=== PATIENT | female | born 1985 | race African-American/Black ===

== ENCOUNTER 2017-10-24 14:56 | Inpatient (IN) | payer OTHER ==
[~2017-10-24] VITALS: Ht 180.3 cm; Wt 173.8 kg
[~2017-10-24 14:56] MED LIST: ALBU1AER9 INH; AMPH30CA3 PO; BUPRTAB PO; CLON1TAB3 PO; DOCU-94 PO; FLNIN NAE; GABA800T PO; HYDR50CA2 PO; IPRA1AER2 INH; RIVA1TAB4 PO; SERT-234 PO; XRL15 PO
[2017-10-24] MEDS ORDERED: SODIUM CHLORIDE 0.9% 1000ML 1,000 ML IV STA (15:16)
[2017-10-24] MEDS ORDERED: FENTANYL CITRATE INJ 50 MCG/1 ML 2 ML VIAL IV STA ×2 (15:16→17:03)
[2017-10-24] MEDS ORDERED: OPTIRAY 320 IV PRN (15:30)
[2017-10-24] MEDS ORDERED: LACTULOSE SYRUP 20 GM/30 ML UDC PO STA (15:33)
--- NOTE | 2017-10-24 15:35 | DIAGNOSTIC IMAGING REPORT ---
CHEST ONE VIEW PORTABLE CLINICAL HISTORY: Abdominal pain. COMPARISON STUDY: Chest CT December 27, 2015. FINDINGS: Lung volumes are mildly diminished. There is no pneumothorax or pleural effusion. Bibasilar linear opacities are noted. Cardiomediastinal silhouette is stable. There is no convincing evidence for pulmonary edema. There is no pneumothorax or pleural effusion. IMPRESSION: Linear bibasilar opacities which favor atelectasis. Electronically signed by: Stan De Leon M.D. 10/24/2017 3:34 PM Dictated Date/Time: 10/24/2017 3:33 PM
--- NOTE | 2017-10-24 15:38 | EMERGENCY ROOM VISIT NOTE ---
History Report prepared by Aleksey: Luis Snyder Under the Supervision of: Dr. Stefano Angel M.D. First contact with patient: 15:07 Chief Complaint: PAIN (GENERALIZED) Stated Complaint: PAIN RT SIDE, BACK,RIBS, THROUGH SHOULDER, History of Present Illness The patient is a 32 year old female who presents to the Emergency Room with complaints of worsening right sided upper back pain that began yesterday evening. She rates her pain as a 10/10 in severity. She reports that her pain is worsened with movement. The patient states that she went to a concert yesterday, but denies any movements that would cause her pain. She reports that she was sitting yesterday evening and stood up due to the fact that she was uncomfortable. The patient states that the more she walked, the more the pain worsened. The patient states that the pain radiates to her right side into her right shoulder, neck, and arm. She reports that the pain started off feeling like a "hot knife. The patient states that the pain has been causing her to become short of breath. She denies nausea, vomiting, cough, congestion, and diarrhea. She reports a history of Chron's disease, blood clots, and PEs. The patient states that she takes Xarelto for her history of blood clots. She reports that she has not had a pulmonary embolism since December 2015 when before she started Xarelto. The patient states that her symptoms during her PE are not similar to her current symptoms. She states that her father had similar symptoms to her current symptoms when he had a PE. The patient denies a history of gallstones, renal calculi, sciatica, and similar symptoms. She states that her last menstrual period was in April and reports that she takes Provera. Source of History: patient Onset: yesterday evening Position: back (upper, right) Symptom Intensity: 10/10 Quality: other ("hot knife" and spasms) Timing: worsening Modifying Factors (Worsening): movement Associated Symptoms: + neck pain, + SOB, No cough, No nausea, No vomiting, No diarrhea Review of Systems See HPI for pertinent positives and negatives. A total of ten systems were reviewed and were otherwise negative. Past Medical & Surgical Medical Problems: (1) ADHD (attention deficit hyperactivity disorder) (2) Gastritis (3) Left leg DVT (4) PCOS (polycystic ovarian syndrome) (5) PE (pulmonary embolism) Surgical Problems: (1) History of tonsillectomy and adenoidectomy Family History FHx: blood clots (father) FHx: diabetes (paternal family) FHx: hypertension (father) Social History Smoking Status: Current Every Day Smoker Alcohol Use: occasionally Drug Use: none Marital Status: single Housing Status: lives with roommate Current/Historical Medications Scheduled Bupropion Hcl (Wellbutrin Xl), 150 MG PO DAILY Fluticasone Propionate (Fluticasone Propionate), 2 SPRAYS GABRIEL DAILY Ipratropium-Albuterol (Combivent Respimat), 2 PUFFS INH BID Rivaroxaban (Xarelto), 20 MG PO DAILY Scheduled PRN Albuterol Sulfate (Proair Hfa), 2 PUFFS INH QID PRN for SOB/Wheezing Allergies Coded Allergies: No Known Allergies (Verified , 10/24/17) Physical Exam Vital Signs Date Time Temp Pulse Resp B/P (MAP) Pulse Ox O2 Delivery O2 Flow Rate FiO2 10/24/17 18:02 69 121/73 95 10/24/17 17:31 62 122/81 95 10/24/17 17:02 69 126/76 98 10/24/17 16:55 62 10/24/17 16:50 73 25 115/65 98 10/24/17 16:49 67 20 115/65 97 Room Air 10/24/17 16:09 72 18 122/67 96 Room Air 10/24/17 15:43 72 21 133/90 97 Room Air 10/24/17 15:40 Room Air 10/24/17 15:02 36.6 79 24 96 Room Air Physical Exam GENERAL: Awake, alert, uncomfortable appearing, in no distress HENT: Normocephalic, atraumatic. Oropharynx unremarkable. EYES: Normal conjunctiva. Sclera non-icteric. NECK: Supple. No nuchal rigidity. FROM. No JVD. RESPIRATORY: Clear to auscultation. CARDIAC: Regular rate, normal rhythm. Extremities warm and well perfused. Pulses equal. ABDOMEN: Soft, non-distended. No tenderness to palpation. No rebound or guarding. No masses. Negative Mendez's. No peritoneal signs. RECTAL: Deferred. MUSCULOSKELETAL: Tenderness along trapezius muscle extending into anterior lateral chest wall. The back is symmetrical on inspection without obvious abnormality. There is no CVA tenderness to palpation. No joint edema. LOWER EXTREMITIES: Calves are equal size bilaterally and non-tender. No edema. No discoloration. NEURO: Normal sensorium. No sensory or motor deficits noted. SKIN: No rash or jaundice noted. Medical Decision & Procedures ER Provider Diagnostic Interpretation: Radiology results as stated below per my review and radiologist interpretation: CHEST ONE VIEW PORTABLE CLINICAL HISTORY: Abdominal pain. COMPARISON STUDY: Chest CT December 27, 2015. FINDINGS: Lung volumes are mildly diminished. There is no pneumothorax or pleural effusion. Bibasilar linear opacities are noted. Cardiomediastinal silhouette is stable. There is no convincing evidence for pulmonary edema. There is no pneumothorax or pleural effusion. IMPRESSION: Linear bibasilar opacities which favor atelectasis. Electronically signed by: Stan De Leon M.D. 10/24/2017 3:34 PM Dictated Date/Time: 10/24/2017 3:[address] ANGIOGRAPHY OF THE CHEST, PULMONARY EMBOLUS PROTOCOL CLINICAL HISTORY: Chest pain and shortness of breath. COMPARISON STUDY: Chest CT December 27, 2015 and chest radiograph performed earlier today. TECHNIQUE: Following IV administration of 116 mL of Optiray-320, helical axial images of the chest were obtained utilizing the pulmonary embolus protocol. Maximal intensity projections and sagittal and coronal reformats were viewed on an independent 3D workstation. IV contrast was administered without complication. A dose lowering technique was utilized adhering to the principles of ALARA. CT DOSE: 2940.20 mGy.cm FINDINGS: There is no central pulmonary embolus. There are multiple segmental pulmonary emboli within the right lower lobe. The embolus burden is diminished when compared to exam of December 27, 2015 however several right lower lobe probably emboli were not evident on that exam. Multifocal subpleural groundglass opacities within the right lower lobe favor pulmonary infarcts which measure up to 4.3 cm. Additional groundglass and linear opacities suggest atelectasis. The heart is mildly enlarged. There is no pericardial effusion. There is no evidence of thoracic aortic dissection. Bony thorax is unremarkable. Abdomen and pelvis will be reported separately. IMPRESSION: 1. Multiple segmental pulmonary emboli within the right lower lobe. Overall, embolus burden is diminished when compared to chest CT of December 27, 2015. However, several of these emboli were not shown on previous CT and several right lower lobe subpleural opacities suggest pulmonary infarcts. Therefore, at least several, if not all, of these right lower lobe pulmonary emboli are likely acute. Discussed with Dr. Angel at time of dictation. 2. Mild cardiomegaly. Electronically signed by: Stan De Leon M.D. 10/24/2017 5:01 PM Dictated Date/Time: 10/24/2017 4:[address] OF THE ABDOMEN AND PELVIS WITH CONTRAST CLINICAL HISTORY: Right upper quadrant abdominal pain. Chest pain and shortness of breath. COMPARISON STUDY: CT of the abdomen and pelvis October 02, 2013. TECHNIQUE: Following IV administration of 116 mL of Optiray-320, axial images of the abdomen and pelvis were obtained from the lung bases to the proximal femurs. Images were reviewed in the axial, sagittal, and coronal planes. IV contrast was administered without complication. A dose lowering technique was utilized adhering to the principles of ALARA. FINDINGS: Visualized portions of the lower chest demonstrate multiple segmental right lower lobe pulmonary emboli which are better depicted on the chest CT. A few subpleural groundglass opacities within the right lower lobe favor pulmonary infarcts which measure up to 4.7 cm. These pulmonary emboli are age indeterminate given previous pulmonary emboli which were shown on study of December 27, 2015. The liver, ,spleen, adrenal glands, kidneys and pancreas are unremarkable. There are several splenule. There is no biliary or pancreatic ductal dilatation. There is no hemoperitoneum or pneumoperitoneum. The ovaries are not enlarged. There is no evidence for a bowel obstruction. The appendix is normal. No ascites or lymphadenopathy is present. There are no suspicious skeletal lesions. IMPRESSION: 1. No acute process within the abdomen or pelvis. 2. Multiple segmental pulmonary emboli within the right lower lobe. Although age indeterminate given known previous pulmonary emboli, acute emboli are favored given the CT appearance and associated suspected right lower lobe pulmonary infarcts. Discussed with Dr. Angel at time of dictation. Electronically signed by: Stan De Leon M.D. 10/24/2017 5:14 PM Dictated Date/Time: 10/24/2017 5:08 PM BILATERAL LOWER EXTREMITY VENOUS DOPPLER CLINICAL HISTORY: +PE on AC, r/o dvt COMPARISON STUDY: Right lower extremity venous Doppler December 27, 2015 and left lower extremity venous Doppler October 28, 2013. TECHNIQUE: Sonography of the deep venous system of the bilateral lower extremities was performed. Compression and augmentation were evaluated. FINDINGS: The common femoral, superficial femoral and popliteal veins were compressible. Augmentation was normal. Flow was shown within the deep calf vessels although the calf vessels were suboptimally assessed due to suboptimal penetration. IMPRESSION: Suboptimal evaluation of the calf vessels but no evidence of deep venous thrombus within the bilateral lower extremities. Electronically signed by: Stan De Leon M.D. 10/24/2017 7:25 PM Dictated Date/Time: 10/24/2017 7:24 PM Laboratory Results 10/24/17 15:40 Red Blood Count 4.75, Mean Corpuscular Volume 79.6, Mean Corpuscular Hemoglobin 25.3, Mean Corpuscular Hemoglobin Concent 31.7, Mean Platelet Volume 9.2, Neutrophils (%) (Auto) 55.8, Lymphocytes (%) (Auto) 33.3, Monocytes (%) (Auto) 8.7, Eosinophils (%) (Auto) 1.6, Basophils (%) (Auto) 0.3, Neutrophils # (Auto) 3.92, Lymphocytes # (Auto) 2.34, Monocytes # (Auto) 0.61, Eosinophils # (Auto) 0.11, Basophils # (Auto) 0.02 10/24/17 15:40 Test 10/24/17 15:40 10/24/17 16:15 White Blood Count 7.02 K/uL (4.8-10.8) Red Blood Count 4.75 M/uL (4.2-5.4) Hemoglobin 12.0 g/dL (12.0-16.0) Hematocrit 37.8 % (37-47) Mean Corpuscular Volume 79.6 fL (80-100) Mean Corpuscular Hemoglobin 25.3 pg (25-34) Mean Corpuscular Hemoglobin Concent 31.7 g/dl (32-36) Platelet Count 277 K/uL (130-400) Mean Platelet Volume 9.2 fL (7.4-10.4) Neutrophils (%) (Auto) 55.8 % Lymphocytes (%) (Auto) 33.3 % Monocytes (%) (Auto) 8.7 % Eosinophils (%) (Auto) 1.6 % Basophils (%) (Auto) 0.3 % Neutrophils # (Auto) 3.92 K/uL (1.4-6.5) Lymphocytes # (Auto) 2.34 K/uL (1.2-3.4) Monocytes # (Auto) 0.61 K/uL (0.11-0.59) Eosinophils # (Auto) 0.11 K/uL (0-0.5) Basophils # (Auto) 0.02 K/uL (0-0.2) RDW Standard Deviation 46.1 fL (36.4-46.3) RDW Coefficient of Variation 15.9 % (11.5-14.5) Immature Granulocyte % (Auto) 0.3 % Immature Granulocyte # (Auto) 0.02 K/uL (0.00-0.02) Anion Gap 6.0 mmol/L (3-11) Est Creatinine Clear Calc Drug Dose 144.6 ml/min Estimated GFR () 93.6 Estimated GFR (Non- 80.8 BUN/Creatinine Ratio 9.7 (10-20) Calcium Level 8.9 mg/dl (8.5-10.1) Total Bilirubin 0.3 mg/dl (0.2-1) Direct Bilirubin < 0.1 mg/dl (0-0.2) Aspartate Amino Transf (AST/SGOT) 9 U/L (15-37) Alanine Aminotransferase (ALT/SGPT) 20 U/L (12-78) Alkaline Phosphatase 66 U/L (45-117) Troponin I < 0.015 ng/ml (0-0.045) Total Protein 7.6 gm/dl (6.4-8.2) Albumin 3.3 gm/dl (3.4-5.0) Lipase 84 U/L (73-393) Urine Color YELLOW Urine Appearance TURBID (CLEAR) Urine pH 5.0 (4.5-7.5) Urine Specific Brethren 1.034 (1.000-1.030) Urine Protein NEG (NEG) Urine Glucose (UA) NEG (NEG) Urine Ketones NEG (NEG) Urine Occult Blood NEG (NEG) Urine Nitrite NEG (NEG) Urine Bilirubin NEG (NEG) Urine Urobilinogen NEG (NEG) Urine Leukocyte Esterase NEG (NEG) Urine WBC (Auto) 10-30 /hpf (0-5) Urine RBC (Auto) 5-10 /hpf (0-4) Urine Hyaline Casts (Auto) 0 /lpf (0-5) Urine Epithelial Cells (Auto) >30 /lpf (0-5) Urine Bacteria (Auto) 2+ (NEG) Urine Renal Epithelial Cells /lpf (0-5) Urine Pathogenic Casts /lpf (0) Urine Test NEG (NEG) Date/Time Source Procedure Growth Status 10/24/17 16:15 Urine , Clean Catch Urine Culture - Final MORE THAN THREE TYPES OF ORGANISMS AK... Complete Laboratory results reviewed by me Medications Administered Medications (Trade) Dose Ordered Sig/Becca Route Start Time Stop Time Status Last Admin Dose Admin Sodium Chloride 1,000 ml @ 999 mls/hr Q1H1M STAT IV 10/24/17 15:16 10/24/17 16:16 DC 10/24/17 15:16 999 MLS/HR Fentanyl Citrate (Fentanyl Inj) 50 mcg NOW STAT IV 10/24/17 15:16 10/24/17 15:19 DC 10/24/17 16:08 50 MCG Acetaminophen 100 ml @ 400 mls/hr NOW STAT IV 10/24/17 16:55 10/24/17 17:09 DC 10/24/17 17:10 400 MLS/HR Fentanyl Citrate (Fentanyl Inj) 50 mcg NOW STAT IV 10/24/17 17:03 10/24/17 17:04 DC 10/24/17 17:10 50 MCG ECG Indication: back/shoulder pain Rate (beats per minute): 71 Rhythm: normal sinus Findings: no acute ischemic change, other (Normal axis) ED Course 151: The patient was evaluated in room C05. A complete history and physical exam was performed. 1724: I reevaluated the patient and she reports that she did not take her Xarelto for a week recently. 1831: I discussed the patients case with Dr. Encinas, [facility] Hospitalist. He understands the patients condition and agrees to accept the patient. He agrees to give the patient Heparin given the patients history of pulmonary embolism. The patient will be further evaluated. Medical Decision I reviewed the patient's past medical history, medications, and the nursing notes as described above. The patient's presentation and history were concerning for pneumonia, bronchitis , PE, biliary etiology, gastroenteritis, colitis, uretal stone, UTI, and pyelonephritis. 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 Of note, upon further questioning patient reports that she did not take her Xaralto for 1 week because she went home for the holidays and forgot it. On arrival the patient is uncomfortable but in NAD, AFVSS. EKG unremarkable. Trop negative. CT abd/pel unremarkable. CTA of chest demonstrates acute pulmonary infarcts, which likely explain her pain particularly in the setting of being of her Xarelto. Case d/w Dr. Encinas [facility], who will admit the patient for further management. Of note, patient did not take her Xarelto today. Will tx with heparin for now given risk of hemorrhage with pulmonary infarcts. Medication Reconcilliation Current Medication List: was personally reviewed by me Blood Pressure Screening Patient's blood pressure: Normal blood pressure Consults Time Called: 1830 Consulting Phys[facility] Returned Call: 1830 I discussed the patients [facility] He understands the patients condition and agrees to accept the patient. He agrees to give the patient Heparin given the patients history of pulmonary embolism. The patient will be further evaluated. Impression Primary Impression: Pulmonary infarct Additional Impression: Pulmonary embolism Critical Care I have personally spent greater than 35 minutes of critical care time in the direct management of this patient. This includes bedside care, interpretation of diagnostic studies, and testing, discussion with consultants, patient, and family members, and other required patient management activities. This 35 minutes is in excess of all separately billable procedures. Scribe Attestation The scribe's documentation has been prepared under my direction and personally reviewed by me in its entirety. I confirm that the note above accurately reflects all work, treatment, procedures, and medical decision making performed by me. Departure Information Dispostion Being Evaluated By Hospitalist Referrals No Doctor, Assigned (PCP) Patient Instructions My [facility] Problem Qualifiers
[2017-10-24 15:53] LABS: BASO % 0.3 %; BASO ABS # 0.02 K/uL (0-0.2); EOS % 1.6 %; EOS ABS # 0.11 K/uL (0-0.5); HEMATOCRIT 37.8 % (37-47); IG# 0.02 K/uL (0.00-0.02); LYMPH % 33.3 %; LYMPH ABS # 2.34 K/uL (1.2-3.4); MEAN CELL VOLUME 79.6 fL (80-100); MEAN CORPUSCULAR HEMOGLOBIN 25.3 pg (25-34); MEAN CORPUSCULAR HGB CONC 31.7 g/dl (32-36); MEAN PLATELET VOLUME 9.2 fL (7.4-10.4); MONO % 8.7 %; MONO ABS # 0.61 K/uL (0.11-0.59); NEUT % 55.8 %; NEUT ABS # 3.92 K/uL (1.4-6.5); PLATELET COUNT 277 K/uL (130-400); RED CELL DISTRIBUTION WIDTH CV 15.9 % (11.5-14.5); RED CELL DISTRIBUTION WIDTH SD 46.1 fL (36.4-46.3); WHITE BLOOD COUNT 7.02 K/uL (4.8-10.8)
[2017-10-24 16:11] LABS: ALBUMIN 3.3 gm/dl (3.4-5.0); ALT/SGPT 20 U/L (12-78); AST/SGOT 9 U/L (15-37); BLOOD UREA NITROGEN 9 mg/dl (7-18); CALCIUM 8.9 mg/dl (8.5-10.1); CARBON DIOXIDE 25 mmol/L (21-32); CREATININE 0.93 mg/dl (0.60-1.20); GLUCOSE 91 mg/dl (70-99); LIPASE 84 U/L (73-393); POTASSIUM 3.7 mmol/L (3.5-5.1); SODIUM 137 mmol/L (136-145)
[2017-10-24 16:17] LABS: ALKALINE PHOSPHATASE 66 U/L (45-117); TOTAL PROTEIN 7.6 gm/dl (6.4-8.2)
[2017-10-24] MEDS ORDERED: ACETAMINOPHEN IV 100 ML IV STA (16:55)
--- NOTE | 2017-10-24 17:03 | DIAGNOSTIC IMAGING REPORT ---
CT ANGIOGRAPHY OF THE CHEST, PULMONARY EMBOLUS PROTOCOL CLINICAL HISTORY: Chest pain and shortness of breath. COMPARISON STUDY: Chest CT December 27, 2015 and chest radiograph performed earlier today. TECHNIQUE: Following IV administration of 116 mL of Optiray-320, helical axial images of the chest were obtained utilizing the pulmonary embolus protocol. Maximal intensity projections and sagittal and coronal reformats were viewed on an independent 3D workstation. IV contrast was administered without complication. A dose lowering technique was utilized adhering to the principles of ALARA. CT DOSE: 2940.20 mGy.cm FINDINGS: There is no central pulmonary embolus. There are multiple segmental pulmonary emboli within the right lower lobe. The embolus burden is diminished when compared to exam of December 27, 2015 however several right lower lobe probably emboli were not evident on that exam. Multifocal subpleural groundglass opacities within the right lower lobe favor pulmonary infarcts which measure up to 4.3 cm. Additional groundglass and linear opacities suggest atelectasis. The heart is mildly enlarged. There is no pericardial effusion. There is no evidence of thoracic aortic dissection. Bony thorax is unremarkable. Abdomen and pelvis will be reported separately. IMPRESSION: 1. Multiple segmental pulmonary emboli within the right lower lobe. Overall, embolus burden is diminished when compared to chest CT of December 27, 2015. However, several of these emboli were not shown on previous CT and several right lower lobe subpleural opacities suggest pulmonary infarcts. Therefore, at least several, if not all, of these right lower lobe pulmonary emboli are likely acute. Discussed with Dr. Angel at time of dictation. 2. Mild cardiomegaly. Electronically signed by: Stan De Leon M.D. 10/24/2017 5:01 PM Dictated Date/Time: 10/24/2017 4:49 PM
--- NOTE | 2017-10-24 17:15 | DIAGNOSTIC IMAGING REPORT ---
CT OF THE ABDOMEN AND PELVIS WITH CONTRAST CLINICAL HISTORY: Right upper quadrant abdominal pain. Chest pain and shortness of breath. COMPARISON STUDY: CT of the abdomen and pelvis October 02, 2013. TECHNIQUE: Following IV administration of 116 mL of Optiray-320, axial images of the abdomen and pelvis were obtained from the lung bases to the proximal femurs. Images were reviewed in the axial, sagittal, and coronal planes. IV contrast was administered without complication. A dose lowering technique was utilized adhering to the principles of ALARA. FINDINGS: Visualized portions of the lower chest demonstrate multiple segmental right lower lobe pulmonary emboli which are better depicted on the chest CT. A few subpleural groundglass opacities within the right lower lobe favor pulmonary infarcts which measure up to 4.7 cm. These pulmonary emboli are age indeterminate given previous pulmonary emboli which were shown on study of December 27, 2015. The liver, ,spleen, adrenal glands, kidneys and pancreas are unremarkable. There are several splenule. There is no biliary or pancreatic ductal dilatation. There is no hemoperitoneum or pneumoperitoneum. The ovaries are not enlarged. There is no evidence for a bowel obstruction. The appendix is normal. No ascites or lymphadenopathy is present. There are no suspicious skeletal lesions. IMPRESSION: 1. No acute process within the abdomen or pelvis. 2. Multiple segmental pulmonary emboli within the right lower lobe. Although age indeterminate given known previous pulmonary emboli, acute emboli are favored given the CT appearance and associated suspected right lower lobe pulmonary infarcts. Discussed with Dr. Angel at time of dictation. Electronically signed by: Stan De Leon M.D. 10/24/2017 5:14 PM Dictated Date/Time: 10/24/2017 5:08 PM
[2017-10-24] MEDS ORDERED: HYDR25CA PO (19:20)
[2017-10-24] MEDS ORDERED: FLNIN NAE (19:20)
[2017-10-24] MEDS ORDERED: ERGO500037 PO (19:20)
--- NOTE | 2017-10-24 19:26 | DIAGNOSTIC IMAGING REPORT ---
BILATERAL LOWER EXTREMITY VENOUS DOPPLER CLINICAL HISTORY: +PE on AC, r/o dvt COMPARISON STUDY: Right lower extremity venous Doppler December 27, 2015 and left lower extremity venous Doppler October 28, 2013. TECHNIQUE: Sonography of the deep venous system of the bilateral lower extremities was performed. Compression and augmentation were evaluated. FINDINGS: The common femoral, superficial femoral and popliteal veins were compressible. Augmentation was normal. Flow was shown within the deep calf vessels although the calf vessels were suboptimally assessed due to suboptimal penetration. IMPRESSION: Suboptimal evaluation of the calf vessels but no evidence of deep venous thrombus within the bilateral lower extremities. Electronically signed by: Stan De Leon M.D. 10/24/2017 7:25 PM Dictated Date/Time: 10/24/2017 7:24 PM
[2017-10-24] MEDS ORDERED: IV FLUIDS COMPLETED PRN (19:30)
--- NOTE | 2017-10-24 19:38 | History and Physical ---
History & Physical Date & Time of Service: Oct 24, 2017 at 19:24 Chief Complaint: Pain Rt Side, Back,Ribs, Through Shoulder, Primary Care Physician: Petty Blanton D.O. History of Present Illness Source: patient, clinic records, hospital records 32 year old female with PMH of PE on Xarelto, tobacco use, MTHFR mutation, anxiety presents to the Emergency Room with complaints right sided rib pain associated with SOB. Pt said that yesterday she developed pain in her right side of her back below the her shoulder blade, radiating to her right side of her ribs area and travelling under her right breast and her neck. she said that the pain also traveled to her right UE and feels like she had a nerve impingement. Pt said that pain was 10/10 in severity and cramping like. She said that today the pain get worst and associated with worsening SOB. She said that she was having SOB with minimal exertion. Pt said that she went to visit her family and forgot to bring her xarelto. she said that she spent 8 days without taking her xarelto. she said that she starting to take it again when she got back after the new year , and she said that she missed a few doses after the new year to now. Pt said that this is her 3rd PE. CTA done in the ER showed PE. Denies any chest pain, palpitation, dizziness, fever. Past Medical/Surgical History Medical Problems: (1) ADHD (attention deficit hyperactivity disorder) Status: Chronic (2) Gastritis Status: Chronic (3) Left leg DVT Status: Resolved (4) PCOS (polycystic ovarian syndrome) Status: Chronic (5) PE (pulmonary embolism) Status: Resolved Surgical Problems: (1) History of tonsillectomy and adenoidectomy Status: Resolved Family History FHx: blood clots (father) FHx: diabetes (paternal family) FHx: hypertension (father) Social History Smoking Status: Current Every Day Smoker Drug Use: none Marital Status: single Housing status: lives with friends Immunizations History of Influenza Vaccine: Yes Influenza Vaccine Date: Jul 18, 2013 History of Tetanus Vaccine?: Yes Tetanus Immunization Date: Jul 18, 2013 History of Pneumococcal: No History of Hepatitis B Vaccine: Yes Allergies Coded Allergies: No Known Allergies (Verified , 10/24/17) Home Medications Scheduled Bupropion Hcl (Wellbutrin Xl), 150 MG PO DAILY Ergocalciferol (Vitamin D 91476 Unit), 1 CAP PO WK Fluticasone Propionate (Fluticasone Propionate), 2 SPRAYS GABRIEL DAILY Hydroxyzine Pamoate (Vistaril), 2 CAP PO HS Ipratropium-Albuterol (Combivent Respimat), 2 PUFFS INH BID Rivaroxaban (Xarelto), 20 MG PO DAILY Scheduled PRN Albuterol Sulfate (Proair Hfa), 2 PUFFS INH QID PRN for SOB/Wheezing Review of Systems Constitutional: No fever, No chills Eyes: No worsening of vision, No redness ENT: No nasal symptoms, No sore throat Respiratory: + shortness of breath, + dyspnea on exertion, No cough, No sputum Cardiovascular: No edema, No claudication, No palpitations Abdomen: No pain, No nausea, No vomiting Genitourinary - Female: No dysuria, No urinary frequency Neurologic: No memory loss, No paralysis Psychiatric: + anxiety Endocrine: No fatigue Hematologic / Lymphatic: No night sweats Integumentary: No rash, No itch Physical Exam Vital Signs Date Time Temp Pulse Resp B/P (MAP) Pulse Ox O2 Delivery O2 Flow Rate FiO2 10/24/17 18:02 69 121/73 95 10/24/17 17:31 62 122/81 95 10/24/17 17:02 69 126/76 98 10/24/17 16:55 62 10/24/17 16:50 73 25 115/65 98 10/24/17 16:49 67 20 115/65 97 Room Air 10/24/17 16:09 72 18 122/67 96 Room Air 10/24/17 15:43 72 21 133/90 97 Room Air 10/24/17 15:40 Room Air 10/24/17 15:02 36.6 79 24 96 Room Air General Appearance: + mild distress, + obese Head: normocephalic, atraumatic Eyes: PERRL, EOMI ENT: hearing grossly normal Neck: no JVD Respiratory/Chest: lungs clear, no accessory muscle use Cardiovascular: no JVD, no murmur Abdomen/GI: normal bowel sounds, non tender, soft Back: + pertinent finding (right sided back tenderness) Extremities/Musculoskelatal: no calf tenderness, no pedal edema 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, no motor/sensory deficits, alert, oriented x 3 Skin: warm/dry, no rash Diagnostics Laboratory Results Results Past 24 Hours Test 10/24/17 15:40 10/24/17 16:15 Range/Units White Blood Count 7.02 4.8-10.8 K/uL Red Blood Count 4.75 4.2-5.4 M/uL Hemoglobin 12.0 12.0-16.0 g/dL Hematocrit 37.8 37-47 % Mean Corpuscular Volume 79.6 80-100 fL Mean Corpuscular Hemoglobin 25.3 25-34 pg Mean Corpuscular Hemoglobin Concent 31.7 32-36 g/dl Platelet Count 277 130-400 K/uL Mean Platelet Volume 9.2 7.4-10.4 fL Neutrophils (%) (Auto) 55.8 % Lymphocytes (%) (Auto) 33.3 % Monocytes (%) (Auto) 8.7 % Eosinophils (%) (Auto) 1.6 % Basophils (%) (Auto) 0.3 % Neutrophils # (Auto) 3.92 1.4-6.5 K/uL Lymphocytes # (Auto) 2.34 1.2-3.4 K/uL Monocytes # (Auto) 0.61 0.11-0.59 K/uL Eosinophils # (Auto) 0.11 0-0.5 K/uL Basophils # (Auto) 0.02 0-0.2 K/uL RDW Standard Deviation 46.1 36.4-46.3 fL RDW Coefficient of Variation 15.9 11.5-14.5 % Immature Granulocyte % (Auto) 0.3 % Immature Granulocyte # (Auto) 0.02 0.00-0.02 K/uL Sodium Level 137 136-145 mmol/L Potassium Level 3.7 3.5-5.1 mmol/L Chloride Level 106 98-107 mmol/L Carbon Dioxide Level 25 21-32 mmol/L Anion Gap 6.0 3-11 mmol/L Blood Urea Nitrogen 9 7-18 mg/dl Creatinine 0.93 0.60-1.20 mg/dl Est Creatinine Clear Calc Drug Dose 144.6 ml/min Estimated GFR () 93.6 Estimated GFR (Non- 80.8 BUN/Creatinine Ratio 9.7 10-20 Random Glucose 91 70-99 mg/dl Calcium Level 8.9 8.5-10.1 mg/dl Total Bilirubin 0.3 0.2-1 mg/dl Direct Bilirubin < 0.1 0-0.2 mg/dl Aspartate Amino Transf (AST/SGOT) 9 15-37 U/L Alanine Aminotransferase (ALT/SGPT) 20 12-78 U/L Alkaline Phosphatase 66 45-117 U/L Troponin I < 0.015 0-0.045 ng/ml Total Protein 7.6 6.4-8.2 gm/dl Albumin 3.3 3.4-5.0 gm/dl Lipase 84 73-393 U/L Urine Color YELLOW Urine Appearance TURBID CLEAR Urine pH 5.0 4.5-7.5 Urine Specific [place] 1.034 1.000-1.030 Urine Protein NEG NEG Urine Glucose (UA) NEG NEG Urine Ketones NEG NEG Urine Occult Blood NEG NEG Urine Nitrite NEG NEG Urine Bilirubin NEG NEG Urine Urobilinogen NEG NEG Urine Leukocyte Esterase NEG NEG Urine WBC (Auto) 10-30 0-5 /hpf Urine RBC (Auto) 5-10 0-4 /hpf Urine Hyaline Casts (Auto) 0 0-5 /lpf Urine Epithelial Cells (Auto) >30 0-5 /lpf Urine Bacteria (Auto) 2+ NEG Urine Renal Epithelial Cells 0-5 /lpf Urine Pathogenic Casts 0 /lpf Urine Test NEG NEG Microbiology Results 10/24/17 Urine Culture, Received Pending Diagnostic Radiology CHEST ONE VIEW PORTABLE CLINICAL HISTORY: Abdominal pain. COMPARISON STUDY: Chest CT December 27, 2015. FINDINGS: Lung volumes are mildly diminished. There is no pneumothorax or pleural effusion. Bibasilar linear opacities are noted. Cardiomediastinal silhouette is stable. There is no convincing evidence for pulmonary edema. There is no pneumothorax or pleural effusion. IMPRESSION: Linear bibasilar opacities which favor atelectasis. Electronically signed by: Stan De Leon M.D. 10/24/2017 3:34 PM Dictated Date/Time: 10/24/2017 3:[address] ANGIOGRAPHY OF THE CHEST, PULMONARY EMBOLUS PROTOCOL CLINICAL HISTORY: Chest pain and shortness of breath. COMPARISON STUDY: Chest CT December 27, 2015 and chest radiograph performed earlier today. TECHNIQUE: Following IV administration of 116 mL of Optiray-320, helical axial images of the chest were obtained utilizing the pulmonary embolus protocol. Maximal intensity projections and sagittal and coronal reformats were viewed on an independent 3D workstation. IV contrast was administered without complication. A dose lowering technique was utilized adhering to the principles of ALARA. CT DOSE: 2940.20 mGy.cm FINDINGS: There is no central pulmonary embolus. There are multiple segmental pulmonary emboli within the right lower lobe. The embolus burden is diminished when compared to exam of December 27, 2015 however several right lower lobe probably emboli were not evident on that exam. Multifocal subpleural groundglass opacities within the right lower lobe favor pulmonary infarcts which measure up to 4.3 cm. Additional groundglass and linear opacities suggest atelectasis. The heart is mildly enlarged. There is no pericardial effusion. There is no evidence of thoracic aortic dissection. Bony thorax is unremarkable. Abdomen and pelvis will be reported separately. IMPRESSION: 1. Multiple segmental pulmonary emboli within the right lower lobe. Overall, embolus burden is diminished when compared to chest CT of December 27, 2015. However, several of these emboli were not shown on previous CT and several right lower lobe subpleural opacities suggest pulmonary infarcts. Therefore, at least several, if not all, of these right lower lobe pulmonary emboli are likely acute. Discussed with Dr. Angel at time of dictation. 2. Mild cardiomegaly. Electronically signed by: Stan De Leon M.D. 10/24/2017 5:01 PM Dictated Date/Time: 10/24/2017 4:[address] OF THE ABDOMEN AND PELVIS WITH CONTRAST CLINICAL HISTORY: Right upper quadrant abdominal pain. Chest pain and shortness of breath. COMPARISON STUDY: CT of the abdomen and pelvis October 02, 2013. TECHNIQUE: Following IV administration of 116 mL of Optiray-320, axial images of the abdomen and pelvis were obtained from the lung bases to the proximal femurs. Images were reviewed in the axial, sagittal, and coronal planes. IV contrast was administered without complication. A dose lowering technique was utilized adhering to the principles of ALARA. FINDINGS: Visualized portions of the lower chest demonstrate multiple segmental right lower lobe pulmonary emboli which are better depicted on the chest CT. A few subpleural groundglass opacities within the right lower lobe favor pulmonary infarcts which measure up to 4.7 cm. These pulmonary emboli are age indeterminate given previous pulmonary emboli which were shown on study of December 27, 2015. The liver, ,spleen, adrenal glands, kidneys and pancreas are unremarkable. There are several splenule. There is no biliary or pancreatic ductal dilatation. There is no hemoperitoneum or pneumoperitoneum. The ovaries are not enlarged. There is no evidence for a bowel obstruction. The appendix is normal. No ascites or lymphadenopathy is present. There are no suspicious skeletal lesions. IMPRESSION: 1. No acute process within the abdomen or pelvis. 2. Multiple segmental pulmonary emboli within the right lower lobe. Although age indeterminate given known previous pulmonary emboli, acute emboli are favored given the CT appearance and associated suspected right lower lobe pulmonary infarcts. Discussed with Dr. Angel at time of dictation. Electronically signed by: Stan De Leon M.D. 10/24/2017 5:14 PM Dictated Date/Time: 10/24/2017 5:08 PM Impression Assessment and Plan RECURRENT PULMONARY EMBOLISM POSSIBLE PULMONARY INFARCT Present to the ER with SOB Non complaint ( has not been taking Xarelto for 1 week) Had hypercoagulable work up done in 05/31 suggested one copy for MTHFR mutation positive CTA chest done showed acute PE. Multiple segmental pulmonary emboli within the right lower lobe. Overall, embolus burden is diminished when compared to chest CT of December 27, 2015. However, several of these emboli were not shown on previous CT and several right lower lobe subpleural opacities suggest pulmonary infarcts. Starting on heparin drip in the ER jacob start on xarelto tomorrow Will need anticoagulant for life Will get an echo in Venous doppler pending Continue monitor in telemetry TOBACCO ABUSE Counseling o smoking cessation Nicotine patch ANXIETY On Wellbutrin Stable OBESITY Counseling on smoking cessation On nicotine patch AMENORRHEA On Medroxyprogesterone (only take if she does not have her period for 3 month) last took it was in April DVT px oh heparin drip CODE status FULL CODE Level of Care Telemetry Resuscitation Status FULL RESUSCITATION VTE Prophylaxis VTE Risk Assessment Done? Y/N: Yes Risk Level: High Given or contraindicated: Other Anticoagulation (heparin drip)
[2017-10-24] MEDS ORDERED: HEPARIN 25000 UNIT/500 ML D5W ONE (19:50)
[2017-10-24] MEDS ORDERED: HEPARIN SOD 5000 UNIT/0.5 ML CARP ONE ×2 (19:50→19:58)
[2017-10-24] MEDS ORDERED: HEPARIN 25,000 UNIT/500ML D5W 500 ML IV PRN (20:00)
[2017-10-24] MEDS ORDERED: MoRPHine SULFATE 4 MG/ML 1 ML CARP\\VIAL IV ONE (20:17)
[2017-10-24] MEDS ORDERED: MoRPHine SULFATE 4 MG/ML 1 ML CARP\\VIAL ONE (20:18)
[2017-10-24] MEDS ORDERED: ALBUT/IPRATROP 3MG/0.5MG NEB 3 ML VIAL INH PRN (20:30)
[2017-10-24] MEDS ORDERED: MoRPHine SULFATE 2 MG/ML CARP IV PRN (20:30)
[2017-10-24 21:00] VITALS: BP 122/76; PULSE 80; TEMP 36.4; O2SAT 99; Ht 180.3 cm; Wt 173.8 kg
[2017-10-24] MEDS: TRAMADOL HCL 50 MG TAB PO PRN (21:46)
[2017-10-24] MEDS ORDERED: KETOROLAC TROMETHAMINE 30 MG/ML VIAL IV STA (21:54)
[2017-10-24] MEDS ORDERED: CYCLOBENZAPRINE HCL 10 MG TAB PO ONE (21:54)
[2017-10-24] MEDS: IPRATROPIUM BROMIDE/ALBUTEROL respimat INH INH SCH (22:00)
[2017-10-24] MEDS: MoRPHine SULFATE 4 MG/ML 1 ML CARP\\VIAL IV PRN (22:43)
[2017-10-24 23:28] VITALS: PULSE 65; O2SAT 98
[2017-10-24 23:35] VITALS: BP 140/79; PULSE 73; TEMP 36.4; O2SAT 96
[2017-10-25] VITALS (7 sets, daily range): BP systolic 128–155; BP diastolic 77–96; PULSE 80–109; TEMP 36.4–37.5; O2SAT 91–99
[2017-10-25 02:22] LABS: PTT PATIENT 52.5 SECONDS (21.0-31.0)
[2017-10-25] MEDS: MoRPHine SULFATE 4 MG/ML 1 ML CARP\\VIAL IV PRN (04:27)
[2017-10-25] MEDS: CYCLOBENZAPRINE HCL 10 MG TAB PO PRN ×3 (04:27→20:00)
[2017-10-25] MEDS ORDERED: HYDROmorphone INJ 1 MG/ML SYR IV ONE (06:03)
[2017-10-25] MEDS ORDERED: HYDROmorphone INJ 1 MG/ML SYR IV PRN (06:15)
[2017-10-25] MEDS: TRAMADOL HCL 50 MG TAB PO PRN ×3 (07:09→21:36)
[2017-10-25] MEDS: BuPROPion XL 150 MG TABCR PO SCH (08:15)
[2017-10-25] MEDS: IPRATROPIUM BROMIDE/ALBUTEROL respimat INH INH SCH ×2 (09:00→20:01)
[2017-10-25] MEDS: FLUTICASONE PROPIONATE NA SPR 16 GM BTL NAE SCH (09:00)
[2017-10-25] MEDS ORDERED: RIVAROXABAN TAB 15 MG TAB PO ONE (09:18)
[2017-10-25] MEDS: HYDROmorphone INJ 1 MG/ML SYR IV PRN ×4 (10:04→16:45)
[2017-10-25] MEDS ORDERED: PERFLUTREN LIPID MICROSPHERE (DEFINITY) IV ONE (10:42)
--- NOTE | 2017-10-25 13:12 | ECHOCARDIOGRAM REPORT ---
*NOTICE TO RECEIVING DEMOCRAT AGENCY This information is strictly Confidential and protected under [place] law. [place] law prohibits you from making any further disclosure of this information unless further disclosure is expressly permitted by the written consent of the person to whom it pertains or is authorized by law. A general authorization for the release of medical or other information is not sufficient for this purpose. Hospital accepts no responsibility if the information is made available to any other person, INCLUDING THE PATIENT. Interpretation Summary * Name: JAYCE FRIAS Study Date: 10/25/2017 06:39 AM BP: 128/84 mmHg * Patient Location: C.2T\S\S232\S\1 HR: 84 * : 1985 (M/d/yyyy) Gender: Female Height: 71 in * Age: 32 yrs Ethnicity: AA Weight: 348 lb * Ordering Physician: Keegan Encinas * Referring Physician: No Doctor, Assigned * Performed By: Saba Lin RDCS * * Reason For Study: PE * BSA: 2.7 m2 * The study was technically limited. * Compared to prior study, changes are noted. * -- Conclusions -- * Ejection Fraction = 60-65%. * No regional wall motion abnormalities visualized in limited views. * Poor apical acoustic windows. * The right ventricle is grossly normal size. * The right ventricular systolic function is qualitatively normal. * There is trace tricuspid regurgitation. * Doppler findings do not suggest pulmonary hypertension. Procedure Details * A complete two-dimensional transthoracic echocardiogram was performed (2D, M-mode, Doppler and color flow Doppler). * A contrast injection of Definity was performed to improve assessment of LV function. * Contrast was injected into an intravenous site in the left arm. * One vial of Definity ultrasound contrast was diluted in normal saline to a total volume of 10 ml. A total of '2' ml of solution was administered during imaging. * Lot # [id number] of Definity utilized for procedure. * Expiration date 1 DEC 06. * The attending nurse who injected the contrast agent was Elisha Valdez RN. Left Ventricle * The left ventricle is normal in size. * There is normal left ventricular wall thickness. * Ejection Fraction = 60-65%. * Left ventricular systolic function is normal. * No regional wall motion abnormalities visualized in limited views. Poor apical acoustic windows. Right Ventricle * The right ventricle is not well visualized. * The right ventricle is grossly normal size. * The right ventricular systolic function is qualitatively normal. Atria * The left atrial size is normal. * Right atrial size is normal. * IAS not well visualized. Mitral Valve * The mitral valve is normal. * There is no mitral valve stenosis. * Significant mitral regurgitation is absent. Tricuspid Valve * The tricuspid valve is normal. * There is no tricuspid stenosis. * There is trace tricuspid regurgitation. * Doppler findings do not suggest pulmonary hypertension. Aortic Valve * The aortic valve is trileaflet. * Aortic stenosis is absent. * There is no significant aortic regurgitation. Pulmonic Valve * The pulmonary valve is not well seen, but the Doppler examination is normal without significant regurgitation or stenosis. Great Vessels * The aortic root is normal size. Pericardium/Pleural * There is no pericardial effusion. Great Vessels * Normal inferior vena cava diameter and respiratory variation suggests normal central venous pressure. MMode 2D Measurements and Calculations IVSd 1.1 cm LVIDd 4.3 cm LVIDs 2.8 cm LVPWd 1.1 cm IVS/LVPW 0.98 FS 35.7 % EDV(Teich) 82.9 ml ESV(Teich) 28.6 ml EF(Teich) 65.5 % EDV(cubed) 79.3 ml ESV(cubed) 21.1 ml EF(cubed) 73.4 % LV mass(C)d 165.5 grams LV mass(C)dI 62.0 grams/m\S\2 SV(Teich) 54.3 ml SI(Teich) 20.4 ml/m\S\2 SV(cubed) 58.2 ml SI(cubed) 21.8 ml/m\S\2 Ao root diam 2.7 cm Ao root area 5.7 cm\S\2 ACS 1.9 cm LA dimension 3.0 cm asc Aorta Diam 2.3 cm LA/Ao 1.1 LVOT diam 2.0 cm LVOT area 3.3 cm\S\2 LVAd ap4 25.3 cm\S\2 LVLd ap4 6.7 cm EDV(MOD-sp4) 79.8 ml EDV(sp4-el) 80.7 ml LVAs ap4 11.5 cm\S\2 LVLs ap4 4.3 cm ESV(MOD-sp4) 24.9 ml ESV(sp4-el) 26.0 ml EF(MOD-sp4) 68.8 % EF(sp4-el) 67.7 % LVAd ap2 21.2 cm\S\2 LVLd ap2 6.0 cm EDV(MOD-sp2) 62.3 ml EDV(sp2-el) 63.2 ml LVAs ap2 9.8 cm\S\2 LVLs ap2 4.0 cm ESV(MOD-sp2) 18.9 ml ESV(sp2-el) 20.1 ml EF(MOD-sp2) 69.7 % EF(sp2-el) 68.2 % LVLd %diff -11.51 % EDV(MOD-bp) 74.8 ml LVLs %diff -6.48 % ESV(MOD-bp) 22.8 ml EF(MOD-bp) 69.5 % SV(MOD-sp4) 54.9 ml SI(MOD-sp4) 20.6 ml/m\S\2 SV(MOD-sp2) 43.4 ml SI(MOD-sp2) 16.3 ml/m\S\2 SV(MOD-bp) 52.0 ml SI(MOD-bp) 19.5 ml/m\S\2 SV(sp4-el) 54.7 ml SI(sp4-el) 20.5 ml/m\S\2 SV(sp2-el) 43.1 ml SI(sp2-el) 16.1 ml/m\S\2 Doppler Measurements and Calculations MV E max zackary 69.8 cm/sec MV A max zackary 61.6 cm/sec MV E/A 1.1 MV dec time 0.15 sec Ao V2 max 107.6 cm/sec Ao max PG 4.6 mmHg Ao max PG (full) 1.9 mmHg ISAAC(V,A) 2.5 cm\S\2 ISAAC(V,D) 2.5 cm\S\2 LV V1 max PG 2.8 mmHg LV V1 max 82.9 cm/sec PA V2 max 109.9 cm/sec PA max PG 4.8 mmHg PA acc slope 634.5 cm/sec\S\2 PA acc time 0.12 sec TR max zackary 196.8 cm/sec PA pr(Accel) 26.7 mmHg
--- NOTE | 2017-10-25 15:51 | Progress Note ---
Internal Med Progress Note Date of Service: Oct 25, 2017. Provider Documentation: SUBJECTIVE: The patient was seen and examined Admitted with Bilateral PE secondary to Noncompliance with Medications with hypercoagulable state Complains of bilateral chest pain at the back No sig SOB OBJECTIVE: Vital Signs-as noted below Exam: General-Moderate distress at rest Eyes-Normal ENT-normal Neck-Supple Lungs-Decreased breath sound bilaterally No wheezing and or crackles Heart-Regular,no murmur Abdomen-Benign,no masses,bowel sound present Extremities-Trace edema bilaterally Neuro-AAOx3 Lab data as noted below. ASSESSMENT & PLAN: RECURRENT PULMONARY EMBOLISM POSSIBLE PULMONARY INFARCT Present to the ER with SOB Non complaint ( has not been taking Xarelto for 1 week) Had hypercoagulable work up done in 05/31 suggested one copy for MTHFR mutation positive CTA chest done showed acute PE. Multiple segmental pulmonary emboli within the right lower lobe. Overall, embolus burden is diminished when compared to chest CT of December 27, 2015. However, several of these emboli were not shown on previous CT and several right lower lobe subpleural opacities suggest pulmonary infarcts. Starting on heparin drip in the ER D/C Heparin and Xarelto started 15 mg BID Will need anticoagulant for life ECHO:: Ejection Fraction = 60-65%. * No regional wall motion abnormalities visualized in limited views. * Poor apical acoustic windows. * The right ventricle is grossly normal size. * The right ventricular systolic function is qualitatively normal. * There is trace tricuspid regurgitation. * Doppler findings do not suggest pulmonary hypertension. Venous Doppler -negative for any DVT Continue monitor in telemetry TOBACCO ABUSE Counseling o smoking cessation Nicotine patch ANXIETY On Wellbutrin Stable OBESITY Counseling on smoking cessation On nicotine patch AMENORRHEA On Medroxyprogesterone (only take if she does not have her period for 3 month) last took it was in April DVT -on Xarelto CODE status FULL CODE DISPOSITION Likely home in a day or two. Vital Signs: Date Time Temp Pulse Resp B/P (MAP) Pulse Ox O2 Delivery O2 Flow Rate FiO2 10/25/17 12:00 Room Air 10/25/17 11:54 36.9 98 20 150/79 (102) 92 Nasal Cannula 2.0 10/25/17 08:00 Room Air 10/25/17 07:52 36.9 96 24 150/96 (114) 93 Room Air 1/8/18 04:00 Room Air 10/25/17 03:42 36.4 80 18 128/84 (99) 97 CPAP 10/25/17 00:00 CPAP 2.0 10/24/17 23:35 36.4 73 22 140/79 (99) 96 Room Air 10/24/17 23:28 65 98 2.0 10/24/17 21:00 36.4 80 24 122/76 99 Nasal Cannula 2.0 10/24/17 20:23 66 22 142/86 99 10/24/17 19:43 70 26 139/77 99 Room Air 10/24/17 18:02 69 121/73 95 10/24/17 17:31 62 122/81 95 10/24/17 17:02 69 126/76 98 10/24/17 16:55 62 10/24/17 16:50 73 25 115/65 98 10/24/17 16:49 67 20 115/65 97 Room Air 10/24/17 16:09 72 18 122/67 96 Room Air Lab Results: Results Past 24 Hours Test 10/24/17 16:15 10/25/17 01:50 Range/Units Urine Color YELLOW Urine Appearance TURBID CLEAR Urine pH 5.0 4.5-7.5 Urine Specific [place] 1.034 1.000-1.030 Urine Protein NEG NEG Urine Glucose (UA) NEG NEG Urine Ketones NEG NEG Urine Occult Blood NEG NEG Urine Nitrite NEG NEG Urine Bilirubin NEG NEG Urine Urobilinogen NEG NEG Urine Leukocyte Esterase NEG NEG Urine WBC (Auto) 10-30 0-5 /hpf Urine RBC (Auto) 5-10 0-4 /hpf Urine Hyaline Casts (Auto) 0 0-5 /lpf Urine Epithelial Cells (Auto) >30 0-5 /lpf Urine Bacteria (Auto) 2+ NEG Urine Renal Epithelial Cells 0-5 /lpf Urine Pathogenic Casts 0 /lpf Urine Test NEG NEG Activated Partial Thromboplast Time 52.5 21.0-31.0 SECONDS Partial Thromboplastin Ratio 2.0 Microbiology Results 10/24/17 Urine Culture - Final, Complete MORE THAN THREE TYPES OF ORGANISMS MO...
[2017-10-25] MEDS: RIVAROXABAN TAB 15 MG TAB PO SCH (20:01)
[2017-10-26] VITALS (7 sets, daily range): BP systolic 126–134; BP diastolic 78–85; PULSE 96–105; TEMP 36.5–37.1; O2SAT 90–97
[2017-10-26] MEDS: HYDROmorphone INJ 1 MG/ML SYR IV PRN (01:26)
[2017-10-26] MEDS: CYCLOBENZAPRINE HCL 10 MG TAB PO PRN ×2 (04:45→11:50)
[2017-10-26 04:52] LABS: HEMOGLOBIN 11.7 g/dL (12.0-16.0); MEAN CELL VOLUME 80.1 fL (80-100); MEAN CORPUSCULAR HEMOGLOBIN 25.3 pg (25-34); MEAN PLATELET VOLUME 9.2 fL (7.4-10.4); PLATELET COUNT 274 K/uL (130-400); RED CELL DISTRIBUTION WIDTH CV 15.8 % (11.5-14.5); RED CELL DISTRIBUTION WIDTH SD 46.5 fL (36.4-46.3); WHITE BLOOD COUNT 9.03 K/uL (4.8-10.8)
[2017-10-26] MEDS ORDERED: LIDODERM (LIDOCAINE) PATCH 5% TD ONE (05:01)
[2017-10-26 05:16] LABS: PTT PATIENT 37.4 SECONDS (21.0-31.0)
[2017-10-26 05:21] LABS: MEAN CORPUSCULAR HGB CONC 31.6 g/dl (32-36)
[2017-10-26] MEDS ORDERED: NSS + 20MEQ KCL 1000ML 1,000 ML IV ONE (05:30)
[2017-10-26 06:45] LABS: CALCIUM 8.6 mg/dl (8.5-10.1); CREATININE 0.92 mg/dl (0.60-1.20); POTASSIUM 3.9 mmol/L (3.5-5.1)
[2017-10-26] MEDS: RIVAROXABAN TAB 15 MG TAB PO SCH ×2 (08:06→19:57)
[2017-10-26] MEDS: BuPROPion XL 150 MG TABCR PO SCH (08:06)
[2017-10-26] MEDS: OXYCODONE/ACETAMINOPHEN 5-325 TAB PO PRN ×4 (08:09→20:02)
[2017-10-26] MEDS: FLUTICASONE PROPIONATE NA SPR 16 GM BTL NAE SCH (08:58)
[2017-10-26] MEDS: IPRATROPIUM BROMIDE/ALBUTEROL respimat INH INH SCH ×2 (08:58→19:57)
--- NOTE | 2017-10-26 13:33 | Progress Note ---
Internal Med Progress Note Date of Service: Oct 26, 2017. Provider Documentation: SUBJECTIVE: The patient was seen and examined Admitted with Bilateral PE secondary to Noncompliance with Medications with hypercoagulable state Complains of bilateral chest pain at the back Remains stable Has been in Bed since admission OBJECTIVE: Vital Signs-as noted below Exam: General-Moderate distress at rest Eyes-Normal ENT-normal Neck-Supple Lungs-Decreased breath sound bilaterally No wheezing and or crackles Heart-Regular,no murmur Abdomen-Benign,no masses,bowel sound present Extremities-Trace edema bilaterally Neuro-AAOx3 Lab data as noted below. ASSESSMENT & PLAN: RECURRENT PULMONARY EMBOLISM POSSIBLE PULMONARY INFARCT Present to the ER with SOB Non complaint ( has not been taking Xarelto for 1 week) Had hypercoagulable work up done in 05/31 suggested one copy for MTHFR mutation positive CTA chest done showed acute PE. Multiple segmental pulmonary emboli within the right lower lobe. Overall, embolus burden is diminished when compared to chest CT of December 27, 2015. However, several of these emboli were not shown on previous CT and several right lower lobe subpleural opacities suggest pulmonary infarcts. Starting on heparin drip in the ER D/C Heparin and Xarelto started 15 mg BID Will need anticoagulant for life ECHO:: Ejection Fraction = 60-65%. * No regional wall motion abnormalities visualized in limited views. * Poor apical acoustic windows. * The right ventricle is grossly normal size. * The right ventricular systolic function is qualitatively normal. * There is trace tricuspid regurgitation. * Doppler findings do not suggest pulmonary hypertension. Venous Doppler -negative for any DVT Continue monitor in telemetry Will transfer tp MS -Start PT/OT -in crease mobility TOBACCO ABUSE Counseling o smoking cessation Nicotine patch ANXIETY On Wellbutrin Stable OBESITY Counseling on smoking cessation On nicotine patch AMENORRHEA On Medroxyprogesterone (only take if she does not have her period for 3 month) last took it was in April DVT -on Xarelto CODE status FULL CODE DISPOSITION Likely home in a day or two. Vital Signs: Date Time Temp Pulse Resp B/P (MAP) Pulse Ox O2 Delivery O2 Flow Rate FiO2 10/26/17 12:00 Nasal Cannula 2.0 10/26/17 08:00 Nasal Cannula 2.0 10/26/17 07:24 36.7 97 19 129/85 (100) 96 CPAP 10/26/17 04:00 CPAP 10/26/17 03:43 37.1 100 18 131/80 (97) 95 CPAP 2.0 10/25/17 23:59 CPAP 10/25/17 23:34 37.5 98 19 144/77 (99) 99 CPAP 2.0 10/25/17 22:22 102 96 2.0 10/25/17 20:00 Room Air 10/25/17 19:37 37.0 107 16 151/93 (112) 91 Room Air 10/25/17 16:00 Room Air 10/25/17 15:51 37.0 109 18 155/86 (109) 91 Nasal Cannula 2.0 Lab Results: Results Past 24 Hours Test 10/26/17 04:40 10/26/17 05:43 Range/Units White Blood Count 9.03 4.8-10.8 K/uL Red Blood Count 4.62 4.2-5.4 M/uL Hemoglobin 11.7 12.0-16.0 g/dL Hematocrit 37.0 37-47 % Mean Corpuscular Volume 80.1 80-100 fL Mean Corpuscular Hemoglobin 25.3 25-34 pg Mean Corpuscular Hemoglobin Concent 31.6 32-36 g/dl RDW Standard Deviation 46.5 36.4-46.3 fL RDW Coefficient of Variation 15.8 11.5-14.5 % Platelet Count 274 130-400 K/uL Mean Platelet Volume 9.2 7.4-10.4 fL Activated Partial Thromboplast Time 37.4 21.0-31.0 SECONDS Partial Thromboplastin Ratio 1.4 Sodium Level 135 136-145 mmol/L Potassium Level 3.9 3.5-5.1 mmol/L Chloride Level 103 98-107 mmol/L Carbon Dioxide Level 28 21-32 mmol/L Anion Gap 4.0 3-11 mmol/L Blood Urea Nitrogen 10 7-18 mg/dl Creatinine 0.92 0.60-1.20 mg/dl Est Creatinine Clear Calc Drug Dose 153.7 ml/min Estimated GFR () 94.8 Estimated GFR (Non- 81.8 BUN/Creatinine Ratio 11.2 10-20 Random Glucose 94 70-99 mg/dl Calcium Level 8.6 8.5-10.1 mg/dl
[2017-10-27] MEDS: OXYCODONE/ACETAMINOPHEN 5-325 TAB PO PRN ×4 (02:01→20:41)
[2017-10-27 06:38] VITALS: BP 115/72; TEMP 36.6; O2SAT 93
[2017-10-27] MEDS: RIVAROXABAN TAB 15 MG TAB PO SCH ×2 (07:56→20:37)
[2017-10-27] MEDS: IPRATROPIUM BROMIDE/ALBUTEROL respimat INH INH SCH ×2 (07:56→20:37)
[2017-10-27] MEDS: FLUTICASONE PROPIONATE NA SPR 16 GM BTL NAE SCH (07:57)
[2017-10-27] MEDS: BuPROPion XL 150 MG TABCR PO SCH (07:57)
[2017-10-27] MEDS: LIDODERM (LIDOCAINE) PATCH 5% TD SCH (07:58)
[2017-10-27 08:30] VITALS: O2SAT 93
[2017-10-27 09:23] LABS: CALCIUM 8.8 mg/dl (8.5-10.1); CREATININE 0.85 mg/dl (0.60-1.20); POTASSIUM 4.1 mmol/L (3.5-5.1)
--- NOTE | 2017-10-27 12:32 | DIAGNOSTIC IMAGING REPORT ---
CHEST 2 VIEWS ROUTINE CLINICAL HISTORY: r/o pneumonia dyspnea COMPARISON STUDY: 11/03/2017 FINDINGS: Trace right pleural effusion. Mild atelectatic change left base. Potential left infrahilar early infiltrative process. Mid and upper lungs are considered clear. IMPRESSION: 1. Small left basilar parenchymal infiltrate combine with mild atelectasis. 2. Trace pleural fluid right lateral costophrenic angle. The above report was generated using voice recognition software. It may contain grammatical, syntax or spelling errors. Electronically signed by: Jaison Reddy M.D. 10/27/2017 12:31 PM Dictated Date/Time: 10/27/2017 12:30 PM
[2017-10-27] MEDS: HYDROmorphone INJ 1 MG/ML SYR IV PRN (13:02)
[2017-10-27 15:11] VITALS: O2SAT 94
[2017-10-27 15:18] VITALS: BP 134/74; PULSE 107; TEMP 37; O2SAT 95
--- NOTE | 2017-10-27 15:28 | Progress Note ---
Internal Med Progress Note Date of Service: Oct 27, 2017. Provider Documentation: SUBJECTIVE: The patient was seen and examined Admitted with Bilateral PE secondary to Noncompliance with Medications with hypercoagulable state Remains stable but complains of a lot of pain at the back of the chest and other places OBJECTIVE: Vital Signs-as noted below Exam: General-Moderate distress at rest due to pain NO SOB and Saturation >90% Eyes-Normal ENT-normal Neck-Supple Lungs-Decreased breath sound bilaterally No wheezing and or crackles Heart-Regular,no murmur Abdomen-Benign,no masses,bowel sound present Extremities-Trace edema bilaterally Neuro-AAOx3 Lab data as noted below. ASSESSMENT & PLAN: RECURRENT PULMONARY EMBOLISM POSSIBLE PULMONARY INFARCT Present to the ER with SOB Non complaint ( has not been taking Xarelto for 1 week) Had hypercoagulable work up done in 05/31 suggested one copy for MTHFR mutation positive CTA chest done showed acute PE. Multiple segmental pulmonary emboli within the right lower lobe. Overall, embolus burden is diminished when compared to chest CT of December 27, 2015. However, several of these emboli were not shown on previous CT and several right lower lobe subpleural opacities suggest pulmonary infarcts. Starting on heparin drip in the ER D/C Heparin and Xarelto started 15 mg BID Will need anticoagulant for life ECHO:: Ejection Fraction = 60-65%. * No regional wall motion abnormalities visualized in limited views. * Poor apical acoustic windows. * The right ventricle is grossly normal size. * The right ventricular systolic function is qualitatively normal. * There is trace tricuspid regurgitation. * Doppler findings do not suggest pulmonary hypertension. Venous Doppler -negative for any DVT Continue monitor in telemetry Will transfer tp MS -Start PT/OT -in crease mobility -Repeat CXR -1. Small left basilar parenchymal infiltrate combine with mild atelectasis. 2. Trace pleural fluid right lateral costophrenic angle. Doubt any infection -Check CBC in AM Will increase Oral pain med and likely to be discharged tomorrow TOBACCO ABUSE Counseling o smoking cessation Nicotine patch ANXIETY On Wellbutrin Stable OBESITY Counseling on smoking cessation On nicotine patch AMENORRHEA On Medroxyprogesterone (only take if she does not have her period for 3 month) last took it was in April DVT -on Xarelto CODE status FULL CODE DISPOSITION Likely home in a day or two. Vital Signs: Date Time Temp Pulse Resp B/P (MAP) Pulse Ox O2 Delivery O2 Flow Rate FiO2 10/27/17 15:18 37.0 107 22 134/74 (94) 95 Room Air 10/27/17 15:11 94 Room Air 10/27/17 08:30 93 Room Air 10/27/17 06:38 36.6 18 115/72 (86) 93 CPAP 10/27/17 00:01 Room Air 10/26/17 22:50 37.1 105 18 134/84 (101) 90 Room Air 10/26/17 22:32 97 2.0 10/26/17 19:20 94 Room Air 2.0 Nasal Cannula 10/26/17 16:00 94 Room Air 2.0 Nasal Cannula Lab Results: Results Past 24 Hours Test 10/27/17 08:39 Range/Units Sodium Level 136 136-145 mmol/L Potassium Level 4.1 3.5-5.1 mmol/L Chloride Level 101 98-107 mmol/L Carbon Dioxide Level 30 21-32 mmol/L Anion Gap 5.0 3-11 mmol/L Blood Urea Nitrogen 9 7-18 mg/dl Creatinine 0.85 0.60-1.20 mg/dl Est Creatinine Clear Calc Drug Dose 166.4 ml/min Estimated GFR () 104.3 Estimated GFR (Non- 90.0 BUN/Creatinine Ratio 10.5 10-20 Random Glucose 84 70-99 mg/dl Calcium Level 8.8 8.5-10.1 mg/dl
[2017-10-27 22:27] VITALS: O2SAT 96
[2017-10-27 23:32] VITALS: BP 116/68; PULSE 90; TEMP 36.8; O2SAT 97
[2017-10-28] VITALS (7 sets, daily range): BP systolic 122–130; BP diastolic 74–82; PULSE 90–98; TEMP 36.4–36.7; O2SAT 94–97
[2017-10-28] MEDS: OXYCODONE/ACETAMINOPHEN 5-325 TAB PO PRN ×5 (00:46→19:14)
[2017-10-28 04:58] LABS: HEMATOCRIT 35.5 % (37-47); HEMOGLOBIN 11.4 g/dL (12.0-16.0); MEAN CELL VOLUME 79.6 fL (80-100); MEAN CORPUSCULAR HEMOGLOBIN 25.6 pg (25-34); MEAN PLATELET VOLUME 9.1 fL (7.4-10.4); PLATELET COUNT 276 K/uL (130-400); RED CELL DISTRIBUTION WIDTH CV 15.5 % (11.5-14.5); RED CELL DISTRIBUTION WIDTH SD 45.3 fL (36.4-46.3)
[2017-10-28 05:23] LABS: MEAN CORPUSCULAR HGB CONC 32.1 g/dl (32-36)
[2017-10-28] MEDS: IPRATROPIUM BROMIDE/ALBUTEROL respimat INH INH SCH ×2 (08:00→20:01)
[2017-10-28] MEDS: HYDROmorphone INJ 1 MG/ML SYR IV PRN ×3 (08:22→18:28)
[2017-10-28] MEDS: FLUTICASONE PROPIONATE NA SPR 16 GM BTL NAE SCH (08:39)
[2017-10-28] MEDS: CYCLOBENZAPRINE HCL 10 MG TAB PO PRN ×2 (08:39→18:23)
[2017-10-28] MEDS: BuPROPion XL 150 MG TABCR PO SCH (08:40)
[2017-10-28] MEDS: RIVAROXABAN TAB 15 MG TAB PO SCH ×2 (08:40→20:01)
[2017-10-28] MEDS: LIDODERM (LIDOCAINE) PATCH 5% TD SCH (08:42)
--- NOTE | 2017-10-28 13:19 | DIAGNOSTIC IMAGING REPORT ---
(CHEST) THORAX WITHOUT CLINICAL HISTORY: Shortness of breath. Pneumonia. PULMONARY INFARCT COMPARISON STUDY: 10/24/2017 CT DOSE: 642.27 mGycm TECHNIQUE: CT of the thorax was performed from the thoracic inlet to the lung bases. Images are reviewed in the axial, sagittal, and coronal planes. IV contrast was not administered for this examination. A dose lowering technique was utilized adhering to the principles of ALARA. FINDINGS: Thyroid: Imaged portions of the thyroid gland are normal in appearance. Thoracic aorta: The thoracic aorta is normal in course and caliber, noting standard 3 vessel arch anatomy. Heart: The heart is normal in size and configuration, without pericardial effusion. Lungs and pleural spaces: There is a small right pleural effusion. Since the prior study, the patient has developed multifocal patchy groundglass upper lobe opacities. There is progressive right middle lobe and bilateral lower lobe atelectasis/consolidation. Given the previously visualized pulmonary emboli, pulmonary infarcts cannot be excluded. Mediastinum: Mediastinal lymph nodes are the upper limits of normal in size Dejah: There is no evidence of pathologic hilar adenopathy given the limitations of a noncontrast study Axilla: Axillary lymph nodes are the upper limits of normal in size. Upper abdomen: Partially visualized upper abdominal viscera is within normal limits. Skeletal structures: There are no lytic or blastic osseous lesions. IMPRESSION: 1. Interval development of a small right pleural effusion 2. Worsening bibasilar atelectasis/consolidation. Given the history of recent emboli, pulmonary infarcts cannot be excluded 3. Interval development of patchy multifocal groundglass upper lobe opacities, likely infectious/inflammatory. Electronically signed by: Navid Herrera M.D. 10/28/2017 1:17 PM Dictated Date/Time: 10/28/2017 1:09 PM
--- NOTE | 2017-10-28 14:35 | Progress Note ---
Internal Med Progress Note Date of Service: Oct 28, 2017. Provider Documentation: SUBJECTIVE: The patient was seen and examined Admitted with Bilateral PE secondary to Noncompliance with Medications with hypercoagulable state Remains stable but complains of a lot of pain at the back of the chest and other places Pain continues to be worse with SOB No fever ,chills OBJECTIVE: Vital Signs-as noted below Exam: General-Moderate distress at rest due to pain NO SOB and Saturation >90% Eyes-Normal ENT-normal Neck-Supple Lungs-Decreased breath sound bilaterally Minimal wheezing bilaterally upper lungs Heart-Regular,no murmur Abdomen-Benign,no masses,bowel sound present Extremities-Trace edema bilaterally Neuro-AAOx3 Lab data as noted below. ASSESSMENT & PLAN: RECURRENT PULMONARY EMBOLISM POSSIBLE PULMONARY INFARCT Present to the ER with SOB Non complaint ( has not been taking Xarelto for 1 week) Had hypercoagulable work up done in 05/31 suggested one copy for MTHFR mutation positive CTA chest done showed acute PE. Multiple segmental pulmonary emboli within the right lower lobe. Overall, embolus burden is diminished when compared to chest CT of December 27, 2015. However, several of these emboli were not shown on previous CT and several right lower lobe subpleural opacities suggest pulmonary infarcts. Starting on heparin drip in the ER D/C Heparin and Xarelto started 15 mg BID Will need anticoagulant for life ECHO:: Ejection Fraction = 60-65%. * No regional wall motion abnormalities visualized in limited views. * Poor apical acoustic windows. * The right ventricle is grossly normal size. * The right ventricular systolic function is qualitatively normal. * There is trace tricuspid regurgitation. * Doppler findings do not suggest pulmonary hypertension. Venous Doppler -negative for any DVT Continue monitor in telemetry Will transfer tp MS -Start PT/OT -in crease mobility -Repeat CXR -1. Small left basilar parenchymal infiltrate combine with mild atelectasis. 2. Trace pleural fluid right lateral costophrenic angle. Doubt any infection -Check CBC in AM Pain remains a concern Will get CT of the Chest::. Interval development of patchy multifocal groundglass upper lobe opacities, likely infectious/inflammatory. Will get Pulmonary input Increase ambulation TOBACCO ABUSE Counseling o smoking cessation Nicotine patch ANXIETY On Wellbutrin Stable OBESITY Counseling on smoking cessation On nicotine patch AMENORRHEA On Medroxyprogesterone (only take if she does not have her period for 3 month) last took it was in April DVT -on Xarelto CODE status FULL CODE DISPOSITION Likely home in a day or two. Vital Signs: Date Time Temp Pulse Resp B/P (MAP) Pulse Ox O2 Delivery O2 Flow Rate FiO2 10/28/17 08:00 96 Nasal Cannula 3.0 10/28/17 07:42 36.4 90 20 122/74 (90) 96 BiPAP 10/28/17 05:54 92 18 96 Nasal Cannula 3.0 10/28/17 00:30 Room Air 10/27/17 23:32 36.8 90 18 116/68 (84) 97 Room Air 10/27/17 22:27 96 2.0 10/27/17 19:30 Room Air 10/27/17 15:18 37.0 107 22 134/74 (94) 95 Room Air 10/27/17 15:11 94 Room Air Lab Results: Results Past 24 Hours Test 10/28/17 04:51 Range/Units White Blood Count 6.00 4.8-10.8 K/uL Red Blood Count 4.46 4.2-5.4 M/uL Hemoglobin 11.4 12.0-16.0 g/dL Hematocrit 35.5 37-47 % Mean Corpuscular Volume 79.6 80-100 fL Mean Corpuscular Hemoglobin 25.6 25-34 pg Mean Corpuscular Hemoglobin Concent 32.1 32-36 g/dl RDW Standard Deviation 45.3 36.4-46.3 fL RDW Coefficient of Variation 15.5 11.5-14.5 % Platelet Count 276 130-400 K/uL Mean Platelet Volume 9.1 7.4-10.4 fL
[2017-10-28] MEDS ORDERED: NURSING VERBAL MED ORDER ONE (17:00)
[2017-10-28] MEDS: POLYETHYLENE (MIRALAX) 17 GM PACK PO PRN (18:32)
[2017-10-28] MEDS ORDERED: IBUPROFEN 600 MG TAB PO STA (18:36)
--- NOTE | 2017-10-28 19:27 | Pulmonary Consultation ---
History General Date of Service: Oct 28, 2017. Stated Complaint: Pulmonary Embolism HPI The patient is a 32 year old female with h/o hypercoagulable disorder, on lifelong anticoagulation for recurrent DVT/PE, but off Xarelto for months ( insurance issues per patient), JASKARAN on CPAP of 10 cm H20, came to ED c/o chest pain in her back, on the right side radiating to apex and to the side, worse with deep inspiration. Denies fever or chills, denies recent illness. Denies actual shortness of breath, but breathing is limited secondary to pain. Denies LE swelling. CT scan on admission showed again pulmonary embolism. Xarelto was resumed Review of Systems per HPI, all other systems reviewed and negative Family History FHx: blood clots (father) FHx: diabetes (paternal family) FHx: hypertension (father) Social History Hx Tobacco Use In Past Year?: Yes Smoking Status: Current Every Day Smoker Marital status: single Housing status: lives with friends Immunizations History of Influenza Vaccine: Yes Influenza Vaccine Date: Jul 18, 2013 History of Tetanus Vaccine?: Yes Tetanus Immunization Date: Jul 18, 2013 History of Pneumococcal: No History of Hepatitis B Vaccine: Yes Allergies Coded Allergies: No Known Allergies (Verified , 10/24/17) Current Medications Reported Home Medications Medications Dose Route/Sig Max Daily Dose Days Date Category Fluticasone Propionate 50 Mcg/Act Spr 2 Sprays GABRIEL DAILY 10/24/17 Reported Xarelto (Rivaroxaban) 20 Mg Tab 20 Mg PO DAILY 12/31/15 Rx Wellbutrin Xl (Bupropion Hcl) 150 Mg Tab 150 Mg PO DAILY 12/29/15 Reported Combivent Respimat (Ipratropium-Albuterol) 1 Aer Aer 2 Puffs INH BID 05/11/14 Reported Proair Hfa (Albuterol Sulfate) 108 Mcg/ Aer 2 Puffs INH QID PRN 05/11/14 Reported Physical Physical Exam Vital Signs: Date Time Temp Pulse Resp B/P (MAP) Pulse Ox O2 Delivery O2 Flow Rate FiO2 10/28/17 16:00 96 Nasal Cannula 3.0 10/28/17 15:10 36.4 98 20 130/82 (98) 94 Room Air 10/28/17 08:00 96 Nasal Cannula 3.0 10/28/17 07:42 36.4 90 20 122/74 (90) 96 BiPAP 1/11/18 05:54 92 18 96 Nasal Cannula 3.0 10/28/17 00:30 Room Air 10/27/17 23:32 36.8 90 18 116/68 (84) 97 Room Air 10/27/17 22:27 96 2.0 10/27/17 19:30 Room Air General: Obese young female, in no distress Heent: NC/AT Lungs: clear to auscultation Chest: tenderness over the right posterior/lateral aspect of the rib cage, no skin lesions CVS: S1S2 regular Abdomen: soft Ext: no edema ORDERLY: AAO x 3, no deficit. Diagnostics Labs Results Past 24 Hours Test 10/28/17 04:51 Range/Units White Blood Count 6.00 4.8-10.8 K/uL Red Blood Count 4.46 4.2-5.4 M/uL Hemoglobin 11.4 12.0-16.0 g/dL Hematocrit 35.5 37-47 % Mean Corpuscular Volume 79.6 80-100 fL Mean Corpuscular Hemoglobin 25.6 25-34 pg Mean Corpuscular Hemoglobin Concent 32.1 32-36 g/dl RDW Standard Deviation 45.3 36.4-46.3 fL RDW Coefficient of Variation 15.5 11.5-14.5 % Platelet Count 276 130-400 K/uL Mean Platelet Volume 9.1 7.4-10.[address] chest with IV contrast, 10/24/17: 1. Multiple segmental pulmonary emboli within the right lower lobe. Overall, embolus burden is diminished when compared to chest CT of December 27, 2015. However, several of these emboli were not shown on previous CT and several right lower lobe subpleural opacities suggest pulmonary infarcts. Therefore, at least several, if not all, of these right lower lobe pulmonary emboli are likely acute. Discussed with Dr. Angel at time of dictation. 2. Mild cardiomegaly Ct chest without contrast: 1. Interval development of a small right pleural effusion 2. Worsening bibasilar atelectasis/consolidation. Given the history of recent emboli, pulmonary infarcts cannot be excluded 3. Interval development of patchy multifocal groundglass upper lobe opacities, likely infectious/inflammatory. Impression Assessment and Plan 32 year old female with recurrent PE and back pain, new lung densities on chest CT Problems: Pulmonary embolism, pulmonary infarcts Multifocal lung infiltrates Musculo-skeletal chest pain. ?Bornholm syndrome Hypercoagulable disorder Plan: Continue anticoagulation with Xarelto. It is possible that the chest pain and the lung opacities are all related to pulmonary embolism, in which case the treatment is supportive and anticoagulation. But other etiologies should be entertained such as infectious or inflammatory. Bornholm syndrome fits clinically, but there is no history of viral illness. Will start empiric NSAIDS today and monitor for symptomatic relief. Check procalcitonin. Empiric Rocephin and Zithromax for 48 hours, low threshold to discontinue. No evidence of DVT Patient is very compliant with CPAP of 10 Will follow the patient
[2017-10-28] MEDS: CEFTRIAXONE SOD INJ 1 GM in DEXTROSE 5% ADD-VANTAGE 50ML 50 ML IV SCH (20:06)
[2017-10-28] MEDS: AZITHROMYCIN IV 500 MG in DEXTROSE 5% 250ML 250 ML IV SCH (20:06)
[2017-10-28] MEDS: IBUPROFEN 600 MG TAB PO SCH (21:00)
[2017-10-29] MEDS: HYDROmorphone INJ 1 MG/ML SYR IV PRN ×2 (00:15→16:36)
[2017-10-29] MEDS: OXYCODONE/ACETAMINOPHEN 5-325 TAB PO PRN ×5 (02:04→19:46)
[2017-10-29 07:50] VITALS: BP 123/84; PULSE 82; TEMP 36.5; O2SAT 96
[2017-10-29] MEDS: RIVAROXABAN TAB 15 MG TAB PO SCH ×2 (08:06→21:01)
[2017-10-29] MEDS: BuPROPion XL 150 MG TABCR PO SCH (08:06)
[2017-10-29] MEDS: IBUPROFEN 600 MG TAB PO SCH ×3 (08:06→16:35)
[2017-10-29] MEDS: IPRATROPIUM BROMIDE/ALBUTEROL respimat INH INH SCH ×2 (08:07→21:00)
[2017-10-29] MEDS: FLUTICASONE PROPIONATE NA SPR 16 GM BTL NAE SCH (08:07)
[2017-10-29] MEDS: LIDODERM (LIDOCAINE) PATCH 5% TD SCH (08:08)
[2017-10-29 08:30] VITALS: O2SAT 99
[2017-10-29] MEDS: CYCLOBENZAPRINE HCL 10 MG TAB PO PRN ×2 (09:56→19:46)
[2017-10-29 10:30] VITALS: O2SAT 99
[2017-10-29] MEDS: POLYETHYLENE (MIRALAX) 17 GM PACK PO PRN (14:34)
--- NOTE | 2017-10-29 16:17 | Progress Note ---
Internal Med Progress Note Date of Service: Oct 29, 2017. Provider Documentation: SUBJECTIVE: The patient was seen and examined Admitted with Bilateral PE secondary to Noncompliance with Medications with hypercoagulable state Remains stable but complains of a lot of pain at the back of the chest and other places Started on Antibiotics and Ibuprofen for pain OBJECTIVE: Vital Signs-as noted below Exam: General-Moderate distress at rest due to pain NO SOB and Saturation >90% Eyes-Normal ENT-normal Neck-Supple Lungs-Decreased breath sound bilaterally No wheezing Heart-Regular,no murmur Abdomen-Benign,no masses,bowel sound present Extremities-Trace edema bilaterally Neuro-AAOx3 Lab data as noted below. ASSESSMENT & PLAN: RECURRENT PULMONARY EMBOLISM POSSIBLE PULMONARY INFARCT Present to the ER with SOB Non complaint ( has not been taking Xarelto for 1 week) Had hypercoagulable work up done in 05/31 suggested one copy for MTHFR mutation positive CTA chest done showed acute PE. Multiple segmental pulmonary emboli within the right lower lobe. Overall, embolus burden is diminished when compared to chest CT of December 27, 2015. However, several of these emboli were not shown on previous CT and several right lower lobe subpleural opacities suggest pulmonary infarcts. Starting on heparin drip in the ER D/C Heparin and Xarelto started 15 mg BID Will need anticoagulant for life ECHO:: Ejection Fraction = 60-65%. * No regional wall motion abnormalities visualized in limited views. * Poor apical acoustic windows. * The right ventricle is grossly normal size. * The right ventricular systolic function is qualitatively normal. * There is trace tricuspid regurgitation. * Doppler findings do not suggest pulmonary hypertension. Venous Doppler -negative for any DVT Continue monitor in telemetry Will transfer tp MS -Start PT/OT -in crease mobility -Repeat CXR -1. Small left basilar parenchymal infiltrate combine with mild atelectasis. 2. Trace pleural fluid right lateral costophrenic angle. Doubt any infection -Check CBC in AM Pain remains a concern Will get CT of the Chest::. Interval development of patchy multifocal groundglass upper lobe opacities, likely infectious/inflammatory. Will get Pulmonary input -appreciate input feel better Likely discharge tomorrow.2 steps before discharge TOBACCO ABUSE Counseling o smoking cessation Nicotine patch ANXIETY On Wellbutrin Stable OBESITY Counseling on smoking cessation On nicotine patch AMENORRHEA On Medroxyprogesterone (only take if she does not have her period for 3 month) last took it was in April DVT -on Xarelto CODE status FULL CODE DISPOSITION Likely home in a day or two. Vital Signs: Date Time Temp Pulse Resp B/P (MAP) Pulse Ox O2 Delivery O2 Flow Rate FiO2 10/29/17 10:30 99 Nasal Cannula 2.0 10/29/17 08:30 99 Nasal Cannula 4.0 10/29/17 08:00 Nasal Cannula 4.0 10/29/17 07:50 36.5 82 16 123/84 (97) 96 Room Air 10/28/17 23:41 36.7 91 18 129/74 (92) 95 Nasal Cannula 4.0 10/28/17 20:00 Nasal Cannula 3.0 10/28/17 19:41 97 2.0 Lab Results: Results Past 24 Hours Test 10/29/17 07:02 Range/Units Procalcitonin < 0.05 0-0.5 ng/ml
[2017-10-29 16:21] VITALS: BP 131/81; PULSE 86; TEMP 36.7; O2SAT 93
[2017-10-29 16:30] VITALS: O2SAT 93
[2017-10-29] MEDS: CEFTRIAXONE SOD INJ 1 GM in DEXTROSE 5% ADD-VANTAGE 50ML 50 ML IV SCH (19:23)
--- NOTE | 2017-10-29 20:24 | Pulmonology Progress Note ---
Pulmonary Progress Note Date of Service Oct 29, 2017. Attending Dr. Shelton Subjective Still has posterior chest pain, but states that it is improved. Less cough, no sputum production Continues to have dyspnea with minimal exertion Objective General: Obese young female, in no distress Heent: NC/AT Lungs: clear to auscultation Chest: tenderness over the right posterior/lateral aspect of the rib cage, no skin lesions CVS: S1S2 regular Abdomen: soft Ext: no edema [employer]: AAO x 3, no deficit. Assessment & Plan 2 year old female with recurrent PE and back pain, new lung densities on chest CT Problems: Pulmonary embolism, pulmonary infarcts Multifocal lung infiltrates Musculo-skeletal chest pain. ?Bornholm syndrome Hypercoagulable disorder Plan: Continue anticoagulation with Xarelto. Per Mark notes, she likely has protein C deficiency Echo reviewed, no evidence of strain. Also had a recent stress test which was negative. Really doubt chronic thromboembolic pulmonary disease in the absence of pulmonary hypertension It is possible that the chest pain and the lung opacities are all related to pulmonary embolism, in which case the treatment is supportive and anticoagulation. But other etiologies should be entertained such as infectious or inflammatory. Bornholm syndrome fits clinically, but there is no history of viral illness. Continue standing Motrin for now Procalcitonin negative Will likely discontinue the Abx tomorrow No evidence of DVT Patient is very compliant with CPAP of 10 Will follow the patient Data Medications: Current Inpatient Medications Medications (Trade) Dose Ordered Sig/Becca Route Start Time Stop Time Status Last Admin Dose Admin Miscellaneous (Iv Fluids Completed) 1 ea PRN PRN N/A 10/24/17 19:30 10/24/18 19:29 Bupropion HCl (Wellbutrin-Xl Tab) 150 mg DAILY PO 10/25/17 09:00 11/24/17 08:59 10/29/17 08:06 150 MG Fluticasone Propionate (Flonase Nasal [place]) 2 sprays DAILY GABRIEL 10/25/17 09:00 11/24/17 08:59 10/29/17 08:07 2 SPRAYS Albuterol/ Ipratropium (Combivent Respimat Inh) 2 puffs BID INH 10/24/17 21:00 11/23/17 20:59 10/29/17 08:07 2 PUFFS Albuterol/ Ipratropium (Duoneb) 3 ml Q4R PRN INH 10/24/17 20:30 11/23/17 20:29 10/28/17 05:54 3 ML Cyclobenzaprine HCl (Flexeril Tab) 10 mg TID PRN PO 10/24/17 22:00 11/23/17 21:59 10/29/17 19:46 10 MG Rivaroxaban (Xarelto Tab) 15 mg BID PO 10/25/17 21:00 11/24/17 20:59 10/29/17 08:06 15 MG Hydromorphone HCl (Dilaudid Inj) 1 mg Q2H PRN IV 10/25/17 09:45 11/08/17 06:14 10/29/17 16:36 1 MG Lidocaine (Lidoderm Patch 5%) 1 patch QAM TD 10/27/17 08:00 11/26/17 08:59 10/29/17 08:08 1 PATCH Miscellaneous (Remove Lidoderm Patch) 1 ea DAILY@21 N/A 10/26/17 21:00 11/25/17 20:59 10/28/17 21:18 1 EA Oxycodone/ Acetaminophen (Percocet 5-325mg Tab) pain not relieved by tylenol Q4H PRN PO 10/26/17 05:15 11/09/17 05:14 10/29/17 19:46 2 TAB Polyethylene (Miralax Powder Packet) 17 gm DAILY PRN PO 10/28/17 17:15 11/27/17 17:14 10/29/17 14:34 17 GM Azithromycin 500 mg/Dextrose 255 ml @ 125 mls/hr DAILY@1999 IV 10/28/17 20:00 11/01/17 22:03 10/28/17 20:06 125 MLS/HR Ceftriaxone Sodium 1 gm/ Dextrose 50 ml @ 100 mls/hr Q24H IV 10/28/17 19:00 11/04/17 18:59 10/29/17 19:23 100 MLS/HR Ibuprofen (Motrin Tab) 600 mg TIDM PO 10/28/17 21:00 11/27/17 20:59 10/29/17 16:35 600 MG I & O: 24-Hour Column 10/30/17 08:00 Intake Total 395 ml Balance 395 ml Vital Signs: Date Time Temp Pulse Resp B/P (MAP) Pulse Ox O2 Delivery O2 Flow Rate FiO2 10/29/17 16:30 93 Room Air 10/29/17 16:21 36.7 86 20 131/81 (98) 93 Room Air 10/29/17 10:30 99 Nasal Cannula 2.0 10/29/17 08:30 99 Nasal Cannula 4.0 10/29/17 08:00 Nasal Cannula 4.0 10/29/17 07:50 36.5 82 16 123/84 (97) 96 Room Air 10/28/17 23:41 36.7 91 18 129/74 (92) 95 Nasal Cannula 4.0 Laboratory Results: Last 24 Hours Test 10/29/17 07:02 Procalcitonin < 0.05 ng/ml
[2017-10-29] MEDS: AZITHROMYCIN IV 500 MG in DEXTROSE 5% 250ML 250 ML IV SCH (21:00)
[2017-10-29] MEDS ORDERED: SENNA 8.6 MG TAB PO STA (21:05)
[2017-10-29] MEDS ORDERED: DOCUSATE SODIUM 100 MG CAP PO ONE (21:15)
[2017-10-30 00:20] VITALS: BP 140/84; PULSE 91; TEMP 36.5; O2SAT 95
[2017-10-30] MEDS: HYDROmorphone INJ 1 MG/ML SYR IV PRN (00:25)
[2017-10-30] MEDS: OXYCODONE/ACETAMINOPHEN 5-325 TAB PO PRN ×3 (02:34→12:29)
[2017-10-30 06:12] LABS: HEMOGLOBIN 11.7 g/dL (12.0-16.0); MEAN CELL VOLUME 79.2 fL (80-100); MEAN CORPUSCULAR HEMOGLOBIN 25.1 pg (25-34); MEAN PLATELET VOLUME 9.2 fL (7.4-10.4); PLATELET COUNT 306 K/uL (130-400); RED CELL DISTRIBUTION WIDTH CV 15.1 % (11.5-14.5); RED CELL DISTRIBUTION WIDTH SD 43.6 fL (36.4-46.3); WHITE BLOOD COUNT 5.02 K/uL (4.8-10.8)
[2017-10-30 06:34] LABS: MEAN CORPUSCULAR HGB CONC 31.6 g/dl (32-36)
[2017-10-30 07:59] VITALS: BP 129/87; PULSE 81; TEMP 36.8; O2SAT 99
[2017-10-30] MEDS ORDERED: SENNA 8.6 MG TAB PO SCH (08:00)
[2017-10-30] MEDS ORDERED: DOCUSATE SODIUM 100 MG CAP PO SCH (08:00)
[2017-10-30] MEDS: BuPROPion XL 150 MG TABCR PO SCH (08:30)
[2017-10-30] MEDS: RIVAROXABAN TAB 15 MG TAB PO SCH (08:30)
[2017-10-30] MEDS: FLUTICASONE PROPIONATE NA SPR 16 GM BTL NAE SCH (08:31)
[2017-10-30] MEDS: IBUPROFEN 600 MG TAB PO SCH ×2 (08:31→11:16)
[2017-10-30] MEDS: IPRATROPIUM BROMIDE/ALBUTEROL respimat INH INH SCH (08:31)
[2017-10-30] MEDS: LIDODERM (LIDOCAINE) PATCH 5% TD SCH (08:33)
[2017-10-30] MEDS ORDERED: BISACODYL 10 MG SUPP PR STA (11:47)
--- NOTE | 2017-10-30 11:47 | Progress Note ---
Internal Med Progress Note Date of Service: Oct 30, 2017. Provider Documentation: SUBJECTIVE: The patient was seen and examined Admitted with Bilateral PE secondary to Noncompliance with Medications with hypercoagulable state Remains stable but complains of a lot of pain at the back of the chest and other places Started on Antibiotics and Ibuprofen for pain Clinically much better today Bowel not moved for days OBJECTIVE: Vital Signs-as noted below Exam: General-Moderate distress at rest due to pain NO SOB and Saturation >90% Eyes-Normal ENT-normal Neck-Supple Lungs-Decreased breath sound bilaterally No wheezing Heart-Regular,no murmur Abdomen-Benign,no masses,bowel sound present Extremities-Trace edema bilaterally Neuro-AAOx3 Lab data as noted below. ASSESSMENT & PLAN: RECURRENT PULMONARY EMBOLISM POSSIBLE PULMONARY INFARCT Present to the ER with SOB Non complaint ( has not been taking Xarelto for 1 week) Had hypercoagulable work up done in 05/31 suggested one copy for MTHFR mutation positive CTA chest done showed acute PE. Multiple segmental pulmonary emboli within the right lower lobe. Overall, embolus burden is diminished when compared to chest CT of December 27, 2015. However, several of these emboli were not shown on previous CT and several right lower lobe subpleural opacities suggest pulmonary infarcts. Starting on heparin drip in the ER D/C Heparin and Xarelto started 15 mg BID Will need anticoagulant for life ECHO:: Ejection Fraction = 60-65%. * No regional wall motion abnormalities visualized in limited views. * Poor apical acoustic windows. * The right ventricle is grossly normal size. * The right ventricular systolic function is qualitatively normal. * There is trace tricuspid regurgitation. * Doppler findings do not suggest pulmonary hypertension. Venous Doppler -negative for any DVT Continue monitor in telemetry Will transfer tp MS -Start PT/OT -in crease mobility -Repeat CXR -1. Small left basilar parenchymal infiltrate combine with mild atelectasis. 2. Trace pleural fluid right lateral costophrenic angle. Doubt any infection -Check CBC in AM Pain remains a concern Will get CT of the Chest::. Interval development of patchy multifocal groundglass upper lobe opacities, likely infectious/inflammatory. Will get Pulmonary input -appreciate input Likely discharge tomorrow.[address] of the Chest:IMPRESSION: 1. Interval development of a small right pleural effusion 2. Worsening bibasilar atelectasis/consolidation. Given the history of recent emboli, pulmonary infarcts cannot be excluded 3. Interval development of patchy multifocal groundglass upper lobe opacities, likely infectious/inflammatory. Appreciate Pulmonary input Received Antibiotics for 2 days Does not seem like infection Will stop Antibiotics and continue Anti Inflammatory needed with limited use due to anticoagulation TOBACCO ABUSE Counseling o smoking cessation Nicotine patch ANXIETY On Wellbutrin Stable OBESITY Counseling on smoking cessation On nicotine patch AMENORRHEA On Medroxyprogesterone (only take if she does not have her period for 3 month) last took it was in April DVT -on Xarelto CODE status FULL CODE DISPOSITION Likely home this afternoon Vital Signs: Date Time Temp Pulse Resp B/P (MAP) Pulse Ox O2 Delivery O2 Flow Rate FiO2 10/30/17 08:30 Room Air 98 10/30/17 07:59 36.8 81 18 129/87 (101) 99 CPAP 10/30/17 00:20 36.5 91 18 140/84 (102) 95 Room Air 10/30/17 00:00 Room Air 2.0 10/29/17 22:33 2.0 10/29/17 16:30 93 Room Air 10/29/17 16:21 36.7 86 20 131/81 (98) 93 Room Air Lab Results: Results Past 24 Hours Test 10/30/17 06:01 Range/Units White Blood Count 5.02 4.8-10.8 K/uL Red Blood Count 4.67 4.2-5.4 M/uL Hemoglobin 11.7 12.0-16.0 g/dL Hematocrit 37.0 37-47 % Mean Corpuscular Volume 79.2 80-100 fL Mean Corpuscular Hemoglobin 25.1 25-34 pg Mean Corpuscular Hemoglobin Concent 31.6 32-36 g/dl RDW Standard Deviation 43.6 36.4-46.3 fL RDW Coefficient of Variation 15.1 11.5-14.5 % Platelet Count 306 130-400 K/uL Mean Platelet Volume 9.2 7.4-10.4 fL
[2017-10-30] MEDS ORDERED: SOD PHOSPHATE/SOD BIPHOSPHATE ENEMA 132 ML BTL PR PRN (13:00)
[2017-10-30] MEDS ORDERED: MAGNESIUM HYDROXIDE SUSP 30 ML UDC PO ONE (13:15)
[2017-10-30] MEDS ORDERED: XRL15 PO ×2 (14:15→14:27)
[2017-10-30] MEDS ORDERED: RIVA1TAB4 PO (14:15)
[2017-10-30] MEDS ORDERED: OXYC-57 PO (14:15)
--- NOTE | 2017-10-30 14:21 | Discharge Instructions ---
Discharge Instructions Date of Service Oct 30, 2017. Admission Reason for Admission: Pulmonary Embolism Discharge Discharge Diagnosis / Problem: Recurrent Pulmonaryb Embolism,Sleep apnea on CPAP Discharge Goals Goal(s): Prevent Disease Progression Activity Recommendations Activity Limitations: resume your previous activity . Instructions / Follow-Up Instructions / Follow-Up Appointment with PCP in 1 week-will call with appointment Current Hospital Diet Patient's current hospital diet: Regular Diet Discharge Diet Recommended Diet: Regular Diet Pending Studies Studies pending at discharge: no Medical Emergencies . Who to Call and When: Medical Emergencies: If at any time you feel your situation is an emergency, please call 911 immediately. . Non-Emergent Contact Non-Emergency issues call your: Primary Care Provider . Past History Medical & Surgical History: (1) Pulmonary infarct (2) Pulmonary embolism (3) PCOS (polycystic ovarian syndrome) (4) ADHD (attention deficit hyperactivity disorder) (5) History of tonsillectomy and adenoidectomy . "Provider Documentation" section prepared by Yuniel Lawton. . VTE Core Measure Inpt VTE Proph given/why not?: Other Anticoagulation (heparin drip)
[2017-10-30 14:25] VITALS: BP 129/87; PULSE 81; TEMP 36.8; O2SAT 99
--- NOTE | 2017-10-31 08:17 | Discharge Summary ---
Discharge Summary Date of Service Oct 31, 2017. Discharge Summary Admission Date: Oct 24, 2017 at 19:23 Discharge Date: Oct 30, 2017 Discharge Disposition: Home Principal Diagnosis: Recurrent Pulmonary Embolism,Sleep apnea on CPAP Secondary Diagnoses/Problems: Please see H&P and Hospital progress note Consultations: Pulmonary Medication Reconciliation New Medications: Oxycodone/Acetaminophen 5MG/325MG (Percocet 5MG/325MG) Tab 1 TAB PO Q4H PRN for Pain for 10 Days, #30 TAB PAIN Rivaroxaban (Xarelto) 15 Mg Tab 15 MG PO BID for 15 Days, #30 TAB for 10 days only Changed Medications: Rivaroxaban (Xarelto) 20 Mg Tab 20 MG PO DAILY, #30 (Medication details modified) satrt taking after finishing 15 mg BID doses Continued Medications: Albuterol Sulfate (Proair Hfa) 108 Mcg/ Aer 2 PUFFS INH QID PRN for SOB/Wheezing Bupropion Hcl (Wellbutrin Xl) 150 Mg Tab 150 MG PO DAILY Fluticasone Propionate (Fluticasone Propionate) 50 Mcg/Act Spr 2 SPRAYS GABRIEL DAILY Ipratropium-Albuterol (Combivent Respimat) 1 Aer Aer 2 PUFFS INH BID Admission Information HPI (per Admitting provider): 32 year old female with PMH of PE on Xarelto, tobacco use, MTHFR mutation, anxiety presents to the Emergency Room with complaints right sided rib pain associated with SOB. Pt said that yesterday she developed pain in her right side of her back below the her shoulder blade, radiating to her right side of her ribs area and travelling under her right breast and her neck. she said that the pain also traveled to her right UE and feels like she had a nerve impingement. Pt said that pain was 10/10 in severity and cramping like. She said that today the pain get worst and associated with worsening SOB. She said that she was having SOB with minimal exertion. Pt said that she went to visit her family and forgot to bring her xarelto. she said that she spent 8 days without taking her xarelto. she said that she starting to take it again when she got back after the new year , and she said that she missed a few doses after the new year to now. Pt said that this is her 3rd PE. CTA done in the ER showed PE. Denies any chest pain, palpitation, dizziness, fever. Past Medical/Surgical History Medical Problems: (1) ADHD (attention deficit hyperactivity disorder) Status: Chronic (2) Gastritis Status: Chronic (3) Left leg DVT Status: Resolved (4) PCOS (polycystic ovarian syndrome) Status: Chronic (5) PE (pulmonary embolism) Status: Resolved Surgical Problems: (1) History of tonsillectomy and adenoidectomy Status: Resolved Family History FHx: blood clots (father) FHx: diabetes (paternal family) FHx: hypertension (father) Social History Smoking Status: Current Every Day Smoker Drug Use: none Marital Status: single Housing status: lives with friends Immunizations History of Influenza Vaccine: Yes Influenza Vaccine Date: Jul 18, 2013 History of Tetanus Vaccine?: Yes Tetanus Immunization Date: Jul 18, 2013 History of Pneumococcal: No History of Hepatitis B Vaccine: Yes Allergies Coded Allergies: No Known Allergies (Verified , 10/24/17) Home Medications Scheduled Bupropion Hcl (Wellbutrin Xl), 150 MG PO DAILY Ergocalciferol (Vitamin D 43217 Unit), 1 CAP PO WK Fluticasone Propionate (Fluticasone Propionate), 2 SPRAYS GABRIEL DAILY Hydroxyzine Pamoate (Vistaril), 2 CAP PO HS Ipratropium-Albuterol (Combivent Respimat), 2 PUFFS INH BID Rivaroxaban (Xarelto), 20 MG PO DAILY Scheduled PRN Albuterol Sulfate (Proair Hfa), 2 PUFFS INH QID PRN for SOB/Wheezing Review of Systems Constitutional: No fever, No chills Eyes: No worsening of vision, No redness ENT: No nasal symptoms, No sore throat Respiratory: + shortness of breath, + dyspnea on exertion, No cough, No sputum Cardiovascular: No edema, No claudication, No palpitations Abdomen: No pain, No nausea, No vomiting Genitourinary - Female: No dysuria, No urinary frequency Neurologic: No memory loss, No paralysis Psychiatric: + anxiety Endocrine: No fatigue Hematologic / Lymphatic: No night sweats Integumentary: No rash, No itch Physical Ex - H&P Physical Exam Vital Signs Date Time Temp Pulse Resp B/P (MAP) Pulse Ox O2 Delivery O2 Flow Rate FiO2 10/24/17 18:02 69 121/73 95 10/24/17 17:31 62 122/81 95 10/24/17 17:02 69 126/76 98 10/24/17 16:55 62 10/24/17 16:50 73 25 115/65 98 10/24/17 16:49 67 20 115/65 97 Room Air 10/24/17 16:09 72 18 122/67 96 Room Air 10/24/17 15:43 72 21 133/90 97 Room Air 10/24/17 15:40 Room Air 10/24/17 15:02 36.6 79 24 96 Room Air General Appearance: + mild distress, + obese Head: normocephalic, atraumatic Eyes: PERRL, EOMI ENT: hearing grossly normal Neck: no JVD Respiratory/Chest: lungs clear, no accessory muscle use Cardiovascular: no JVD, no murmur Abdomen/GI: normal bowel sounds, non tender, soft Back: + pertinent finding (right sided back tenderness) Extremities/Musculoskelatal: no calf tenderness, no pedal edema 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, no motor/sensory deficits, alert, oriented x 3 Skin: warm/dry, no rash Diagnostics - H&P Diagnostics Laboratory Results Results Past 24 Hours Test 10/24/17 15:40 10/24/17 16:15 Range/Units White Blood Count 7.02 4.8-10.8 K/uL Red Blood Count 4.75 4.2-5.4 M/uL Hemoglobin 12.0 12.0-16.0 g/dL Hematocrit 37.8 37-47 % Mean Corpuscular Volume 79.6 80-100 fL Mean Corpuscular Hemoglobin 25.3 25-34 pg Mean Corpuscular Hemoglobin Concent 31.7 32-36 g/dl Platelet Count 277 130-400 K/uL Mean Platelet Volume 9.2 7.4-10.4 fL Neutrophils (%) (Auto) 55.8 % Lymphocytes (%) (Auto) 33.3 % Monocytes (%) (Auto) 8.7 % Eosinophils (%) (Auto) 1.6 % Basophils (%) (Auto) 0.3 % Neutrophils # (Auto) 3.92 1.4-6.5 K/uL Lymphocytes # (Auto) 2.34 1.2-3.4 K/uL Monocytes # (Auto) 0.61 0.11-0.59 K/uL Eosinophils # (Auto) 0.11 0-0.5 K/uL Basophils # (Auto) 0.02 0-0.2 K/uL RDW Standard Deviation 46.1 36.4-46.3 fL RDW Coefficient of Variation 15.9 11.5-14.5 % Immature Granulocyte % (Auto) 0.3 % Immature Granulocyte # (Auto) 0.02 0.00-0.02 K/uL Sodium Level 137 136-145 mmol/L Potassium Level 3.7 3.5-5.1 mmol/L Chloride Level 106 98-107 mmol/L Carbon Dioxide Level 25 21-32 mmol/L Anion Gap 6.0 3-11 mmol/L Blood Urea Nitrogen 9 7-18 mg/dl Creatinine 0.93 0.60-1.20 mg/dl Est Creatinine Clear Calc Drug Dose 144.6 ml/min Estimated GFR () 93.6 Estimated GFR (Non- 80.8 BUN/Creatinine Ratio 9.7 10-20 Random Glucose 91 70-99 mg/dl Calcium Level 8.9 8.5-10.1 mg/dl Total Bilirubin 0.3 0.2-1 mg/dl Direct Bilirubin < 0.1 0-0.2 mg/dl Aspartate Amino Transf (AST/SGOT) 9 15-37 U/L Alanine Aminotransferase (ALT/SGPT) 20 12-78 U/L Alkaline Phosphatase 66 45-117 U/L Troponin I < 0.015 0-0.045 ng/ml Total Protein 7.6 6.4-8.2 gm/dl Albumin 3.3 3.4-5.0 gm/dl Lipase 84 73-393 U/L Urine Color YELLOW Urine Appearance TURBID CLEAR Urine pH 5.0 4.5-7.5 Urine Specific [place] 1.034 1.000-1.030 Urine Protein NEG NEG Urine Glucose (UA) NEG NEG Urine Ketones NEG NEG Urine Occult Blood NEG NEG Urine Nitrite NEG NEG Urine Bilirubin NEG NEG Urine Urobilinogen NEG NEG Urine Leukocyte Esterase NEG NEG Urine WBC (Auto) 10-30 0-5 /hpf Urine RBC (Auto) 5-10 0-4 /hpf Urine Hyaline Casts (Auto) 0 0-5 /lpf Urine Epithelial Cells (Auto) >30 0-5 /lpf Urine Bacteria (Auto) 2+ NEG Urine Renal Epithelial Cells 0-5 /lpf Urine Pathogenic Casts 0 /lpf Urine Test NEG NEG Microbiology Results 10/24/17 Urine Culture, Received Pending Diagnostic Radiology CHEST ONE VIEW PORTABLE CLINICAL HISTORY: Abdominal pain. COMPARISON STUDY: Chest CT December 27, 2015. FINDINGS: Lung volumes are mildly diminished. There is no pneumothorax or pleural effusion. Bibasilar linear opacities are noted. Cardiomediastinal silhouette is stable. There is no convincing evidence for pulmonary edema. There is no pneumothorax or pleural effusion. IMPRESSION: Linear bibasilar opacities which favor atelectasis. Electronically signed by: Stan De Leon M.D. 10/24/2017 3:34 PM Dictated Date/Time: 10/24/2017 3:[address] ANGIOGRAPHY OF THE CHEST, PULMONARY EMBOLUS PROTOCOL CLINICAL HISTORY: Chest pain and shortness of breath. COMPARISON STUDY: Chest CT December 27, 2015 and chest radiograph performed earlier today. TECHNIQUE: Following IV administration of 116 mL of Optiray-320, helical axial images of the chest were obtained utilizing the pulmonary embolus protocol. Maximal intensity projections and sagittal and coronal reformats were viewed on an independent 3D workstation. IV contrast was administered without complication. A dose lowering technique was utilized adhering to the principles of ALARA. CT DOSE: 2940.20 mGy.cm FINDINGS: There is no central pulmonary embolus. There are multiple segmental pulmonary emboli within the right lower lobe. The embolus burden is diminished when compared to exam of December 27, 2015 however several right lower lobe probably emboli were not evident on that exam. Multifocal subpleural groundglass opacities within the right lower lobe favor pulmonary infarcts which measure up to 4.3 cm. Additional groundglass and linear opacities suggest atelectasis. The heart is mildly enlarged. There is no pericardial effusion. There is no evidence of thoracic aortic dissection. Bony thorax is unremarkable. Abdomen and pelvis will be reported separately. IMPRESSION: 1. Multiple segmental pulmonary emboli within the right lower lobe. Overall, embolus burden is diminished when compared to chest CT of December 27, 2015. However, several of these emboli were not shown on previous CT and several right lower lobe subpleural opacities suggest pulmonary infarcts. Therefore, at least several, if not all, of these right lower lobe pulmonary emboli are likely acute. Discussed with Dr. Angel at time of dictation. 2. Mild cardiomegaly. Electronically signed by: Stan De Leon M.D. 10/24/2017 5:01 PM Dictated Date/Time: 10/24/2017 4:[address] OF THE ABDOMEN AND PELVIS WITH CONTRAST CLINICAL HISTORY: Right upper quadrant abdominal pain. Chest pain and shortness of breath. COMPARISON STUDY: CT of the abdomen and pelvis October 02, 2013. TECHNIQUE: Following IV administration of 116 mL of Optiray-320, axial images of the abdomen and pelvis were obtained from the lung bases to the proximal femurs. Images were reviewed in the axial, sagittal, and coronal planes. IV contrast was administered without complication. A dose lowering technique was utilized adhering to the principles of ALARA. FINDINGS: Visualized portions of the lower chest demonstrate multiple segmental right lower lobe pulmonary emboli which are better depicted on the chest CT. A few subpleural groundglass opacities within the right lower lobe favor pulmonary infarcts which measure up to 4.7 cm. These pulmonary emboli are age indeterminate given previous pulmonary emboli which were shown on study of December 27, 2015. The liver, ,spleen, adrenal glands, kidneys and pancreas are unremarkable. There are several splenule. There is no biliary or pancreatic ductal dilatation. There is no hemoperitoneum or pneumoperitoneum. The ovaries are not enlarged. There is no evidence for a bowel obstruction. The appendix is normal. No ascites or lymphadenopathy is present. There are no suspicious skeletal lesions. IMPRESSION: 1. No acute process within the abdomen or pelvis. 2. Multiple segmental pulmonary emboli within the right lower lobe. Although age indeterminate given known previous pulmonary emboli, acute emboli are favored given the CT appearance and associated suspected right lower lobe pulmonary infarcts. Discussed with Dr. Angel at time of dictation. Electronically signed by: Stan De Leon M.D. 10/24/2017 5:14 PM Dictated Date/Time: 10/24/2017 5:08 PM Impression - H&P Impression Assessment and Plan RECURRENT PULMONARY EMBOLISM POSSIBLE PULMONARY INFARCT Present to the ER with SOB Non complaint ( has not been taking Xarelto for 1 week) Had hypercoagulable work up done in 05/31 suggested one copy for MTHFR mutation positive CTA chest done showed acute PE. Multiple segmental pulmonary emboli within the right lower lobe. Overall, embolus burden is diminished when compared to chest CT of December 27, 2015. However, several of these emboli were not shown on previous CT and several right lower lobe subpleural opacities suggest pulmonary infarcts. Starting on heparin drip in the ER jacob start on xarelto tomorrow Will need anticoagulant for life Will get an echo in Venous doppler pending Continue monitor in telemetry TOBACCO ABUSE Counseling o smoking cessation Nicotine patch ANXIETY On Wellbutrin Stable OBESITY Counseling on smoking cessation On nicotine patch AMENORRHEA On Medroxyprogesterone (only take if she does not have her period for 3 month) last took it was in April DVT px oh heparin drip CODE status FULL CODE Level of Care Telemetry Resuscitation Status FULL RESUSCITATION VTE Prophylaxis VTE Risk Assessment Done? 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 Multiple segmental pulmonary emboli within the right lower lobe. Overall, embolus burden is diminished when compared to chest CT of December 27, 2015. However, several of these emboli were not shown on previous CT and several right lower lobe subpleural opacities suggest pulmonary infarcts. Starting on heparin drip in the ER D/C Heparin and Xarelto started 15 mg BID Will need anticoagulant for life ECHO:: Ejection Fraction = 60-65%. * No regional wall motion abnormalities visualized in limited views. * Poor apical acoustic windows. * The right ventricle is grossly normal size. * The right ventricular systolic function is qualitatively normal. * There is trace tricuspid regurgitation. * Doppler findings do not suggest pulmonary hypertension. Venous Doppler -negative for any DVT Continue monitor in telemetry Will transfer tp MS -Start PT/OT -in crease mobility -Repeat CXR -1. Small left basilar parenchymal infiltrate combine with mild atelectasis. 2. Trace pleural fluid right lateral costophrenic angle. Doubt any infection -Check CBC in AM Pain remains a concern Will get CT of the Chest::. Interval development of patchy multifocal groundglass upper lobe opacities, likely infectious/inflammatory. Will get Pulmonary input -appreciate input Likely discharge tomorrow.[address] of the Chest:IMPRESSION: 1. Interval development of a small right pleural effusion 2. Worsening bibasilar atelectasis/consolidation. Given the history of recent emboli, pulmonary infarcts cannot be excluded 3. Interval development of patchy multifocal groundglass upper lobe opacities, likely infectious/inflammatory. Appreciate Pulmonary input Received Antibiotics for 2 days Does not seem like infection Will stop Antibiotics and continue Anti Inflammatory needed with limited use due to anticoagulation TOBACCO ABUSE Counseling o smoking cessation Nicotine patch ANXIETY On Wellbutrin Stable OBESITY Counseling on smoking cessation On nicotine patch AMENORRHEA On Medroxyprogesterone (only take if she does not have her period for 3 month) last took it was in April DVT -on Xarelto CODE status FULL CODE DISPOSITION Likely home this afternoon Total time spent on discharge = 35 minutes This includes examination of the patient, discharge planning, medication reconciliation, and communication with other providers. Discharge Instructions Date of Service Oct 30, 2017. Admission Reason for Admission: Pulmonary Embolism Discharge Discharge Diagnosis / Problem: Recurrent Pulmonaryb Embolism,Sleep apnea on CPAP Discharge Goals Goal(s): Prevent Disease Progression Activity Recommendations Activity Limitations: resume your previous activity . Instructions / Follow-Up Instructions / Follow-Up Appointment with PCP in 1 week-will call with appointment Current Hospital Diet Patient's current hospital diet: Regular Diet Discharge Diet Recommended Diet: Regular Diet Pending Studies Studies pending at discharge: no Medical Emergencies . Who to Call and When: Medical Emergencies: If at any time you feel your situation is an emergency, please call 911 immediately. . Non-Emergent Contact Non-Emergency issues call your: Primary Care Provider . Past History Medical & Surgical History: (1) Pulmonary infarct (2) Pulmonary embolism (3) PCOS (polycystic ovarian syndrome) (4) ADHD (attention deficit hyperactivity disorder) (5) History of tonsillectomy and adenoidectomy . "Provider Documentation" section prepared by Yuniel Lawton. . VTE Core Measure Inpt VTE Proph given/why not?: Other Anticoagulation (heparin drip) <Electronically signed by Yuniel Lawton M.D.> Signed: 10/30/17 1421 Additional Copies To Petty Blanton D.O.
== END 2017-10-30 15:18 | disposition home or self-care (01) | DRG 176 ==
LOC: C.EDB 14:57 → C.2T 19:23 → ENRESERV 19:26 → EDBEDREQ 19:34 → ENRESERV 10-26 13:57 → C.4E 10-26 14:36
PROVIDERS: ADMIT Internal Medicine; ATTEND Internal Medicine
DX: I26.99 Other pulmonary embolism without acute cor pulmonale (principal); E72.12 Methylenetetrahydrofolate reductase deficiency; Z68.43 Body mass index [BMI] 50.0-59.9, adult; G47.30 Sleep apnea, unspecified; F90.9 Attention-deficit hyperactivity disorder, unspecified type; F17.200 Nicotine dependence, unspecified, uncomplicated; F41.9 Anxiety disorder, unspecified; E66.9 Obesity, unspecified; N91.2 Amenorrhea, unspecified; Z86.711 Personal history of pulmonary embolism; Z91.14 Patient's other noncompliance with medication regimen; Z83.3 Family history of diabetes mellitus; Z82.49 Family history of ischemic heart disease and other diseases of the circulatory system